=== PATIENT | female | born 1955 ===

== ENCOUNTER 2020-06-27 07:29 | Outpatient (REF) | payer OTHER, SELFPAY ==
[2020-06-27 11:40] LABS: Estimated Average Glucose 117 mg/dL; Hemoglobin A1c % 5.7 %
[2020-06-27 11:49] LABS: Hemoglobin 13.8 g/dl (12.0-16.0); Mean Corpuscular HGB Conc 32.9 g/dl (31.0-35.0); Mean Corpuscular Hemoglobin 29.4 pg (27.0-33.0); Mean Corpuscular Volume 89.4 fL (80-98); Mean Platelet Volume 11.5 fL (9.4-12.3); Platelet Count 195 X10*3/uL (160-400); Red Cell Distribution Width 12.2 % (11.0-16.0); White Blood Count 5.7 X10*3/uL (4.8-10.8)
[2020-06-27 12:01] LABS: Glucose Urine UA NEG (NEG); Leukocyte Esterase Urine 1+ (NEG); Nitrite Urine NEG (NEG); Urine Blood TRACE (NEG); Urine Ketones NEG (NEG); Urine Protein NEG (NEG-TRACE)
[2020-06-27 12:03] LABS: Appearance Urine HAZY; Color Urine YELLOW
[2020-06-27 12:04] LABS: Alanine Aminotransferase 37 U/L (0-31); Albumin Level 4.4 g/dL (3.5-5.0); Alkaline Phosphatase 113 U/L (39-117); Anion Gap 14 (12-20); Aspartate Amino Transferase 23 U/L (5-31); Bilirubin Total 0.9 mg/dL (0.0-1.0); Blood Urea Nitrogen 13 mg/dL (9-16); Calcium 8.5 mg/dL (8.4-10.2); Carbon Dioxide 27 mmol/L (22-29); Chloride 104 mmol/L (96-108); Cholesterol 165 mg/dL; Estimated Glomerular Filt Rate > 60; Glucose Fasting 99 mg/dL (60-99); HDL Cholesterol 51 mg/dL; LDL Cholesterol Calculated 91 mg/dl; Potassium 4.7 mmol/l (3.3-5.1); Sodium 140 mmol/L (135-145); Triglycerides 118 mg/dL
[2020-06-27 12:18] LABS: RBC Urine 0-2 /HPF (0)
[2020-06-27 12:19] LABS: Bacteria Urine TRACE /LPF; Mucus Urine 1+ /LPF; Squamous Epithelial Cell Urine 2+ /LPF
== END 2020-06-27 07:30 | disposition home or self-care (01) ==
LOC: HO.HMGCLDS 07:29
PROVIDERS: PCP Internal Medicine; Visit Provider Internal Medicine
DX: E78.5 Hyperlipidemia, unspecified (principal); I10 Essential (primary) hypertension; J45.909 Unspecified asthma, uncomplicated
CPT/HCPCS: 36415; 80053; 80061; 81001; 83036; 85027

== ENCOUNTER 2020-10-20 07:02 | Outpatient (REF) | payer OTHER, SELFPAY ==
[2020-10-20 11:32] LABS: Glucose Urine UA NEG (NEG); Leukocyte Esterase Urine 2+ (NEG); Nitrite Urine NEG (NEG); PH 6.5 (5.0-8.0); Specific Gravity - Urine 1.025 (1.005-1.025); Urine Blood TRACE (NEG); Urine Ketones NEG (NEG); Urine Protein NEG (NEG-TRACE)
[2020-10-20 11:41] LABS: Hematocrit 41.3 % (37-47); Hemoglobin 13.4 g/dl (12.0-16.0); Mean Corpuscular HGB Conc 32.4 g/dl (31.0-35.0); Mean Corpuscular Hemoglobin 29.5 pg (27.0-33.0); Mean Platelet Volume 11.6 fL (9.4-12.3); Platelet Count 190 X10*3/uL (160-400); Red Blood Count 4.54 X10*6/uL (4.20-5.50); Red Cell Distribution Width 12.5 % (11.0-16.0); White Blood Count 4.9 X10*3/uL (4.8-10.8)
[2020-10-20 11:52] LABS: Appearance Urine HAZY; Color Urine YELLOW
[2020-10-20 12:07] LABS: Alanine Aminotransferase 40 U/L (0-31); Albumin Level 4.2 g/dL (3.5-5.0); Alkaline Phosphatase 102 U/L (39-117); Anion Gap 11 (12-20); Aspartate Amino Transferase 25 U/L (5-31); Blood Urea Nitrogen 15 mg/dL (9-16); Calcium 8.8 mg/dL (8.4-10.2); Carbon Dioxide 29 mmol/L (22-29); Chloride 104 mmol/L (96-108); Cholesterol 202 mg/dL; Estimated Glomerular Filt Rate > 60; Glucose Fasting 101 mg/dL (60-99); HDL Cholesterol 53 mg/dL; LDL Cholesterol Calculated 123 mg/dl; Potassium 4.3 mmol/L (3.3-5.1); Sodium 140 mmol/L (135-145); Triglycerides 132 mg/dL
[2020-10-20 12:20] LABS: Mucus Urine 1+ /LPF; RBC Urine 0-2 /HPF (0); Renal Epithelial Cells Urine 1+ /LPF; Squamous Epithelial Cell Urine 1+ /LPF; WBC Urine 30-49 /HPF (0-4)
[2020-10-20 12:32] LABS: TSH reflex Free T4 1.48 uIU/mL (0.32-4.0)
== END 2020-10-20 07:03 | disposition home or self-care (01) ==
LOC: HO.HMGCLDS 07:02
PROVIDERS: PCP Internal Medicine; Visit Provider Internal Medicine
DX: I10 Essential (primary) hypertension (principal); E78.5 Hyperlipidemia, unspecified; D23.5 Other benign neoplasm of skin of trunk; E04.9 Nontoxic goiter, unspecified; J45.909 Unspecified asthma, uncomplicated
CPT/HCPCS: 36415; 80053; 80061; 81001; 84443; 85027

== ENCOUNTER 2020-11-19 08:12 | Outpatient (REF) | payer OTHER, SELFPAY ==
--- NOTE | ~2020-11-19 | US_ITS ---
EXAMINATION: US THYROID CLINICAL INFORMATION: Hyperlipidemia, unspecified. COMPARISON: Thyroid ultrasound 01/30/2018. TECHNIQUE: Linear transducer grayscale and color Doppler examination with attention to the region of the thyroid. FINDINGS: SIZE: Measurements of the thyroid lobes and nodules are given in sagittal, anteroposterior and transverse dimensions respectively. Right Thyroid Lobe: 6.3 x 1.9 x 1.7 cm, volume 10.3 mL. Previously 4.3 x 1.8 x 2.0 cm, volume 7.8 mL. Parenchyma: The gland echotexture is heterogeneous. Thyroid vascularity is normal. Left Thyroid Lobe: 4.5 x 1.5 x 1.4 cm, volume 5.0 mL. Previously 3.9 x 1.4 x 1.4 cm, volume 4.1 mL. Parenchyma: The gland echotexture is homogeneous. Thyroid vascularity is normal. Isthmus: 0.3 cm in maximum AP dimension. Previously 0.1 cm. Estimated total number of nodules greater than or equal to 1 cm: 0. 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 Location: Right mid pole. Size: 0.5 x 0.4 x 0.3 cm, volume 0.09 mL. Previously: 0.5 x 0.3 x 0.3 cm, volume 0.02 mL. Nodule characteristics: Composition: Cystic(0). ACR TI-RADS total points: 0 ACR TI-RADS category: 1 Significant change in size (>/= 20% in 2 dimensions and minimal increase of 2 mm or 50% or greater increase in volume): No. Change in features: No. Change in ACR TI-RADS risk category: Non-applicable. 2. Location: Right mid pole. Size: 0.9 x 0.7 x 0.9 cm, volume 0.3 mL. Previously: 1.1 x 0.9 x 0.9 cm, volume 0.5 mL. Nodule characteristics: Composition: Mixed cystic and solid (1). Echogenicity: Very hypoechoic (3). Shape: Not taller than wide (0). Margins: Irregular (2). Echogenic Foci: Punctate echogenic foci (3). ACR TI-RADS total points: 9 ACR TI-RADS category: 5 Significant change in size (>/= 20% in 2 dimensions and minimal increase of 2 mm or 50% or greater increase in volume): Decreased. Change in features: No Change in ACR TI-RADS risk category: Non-applicable. 3. Location: Right mid pole. Size: 0.3 x 0.3 x 0.2 cm, volume 0.01 mL. Previously: 0.3 x 0.2 x 0.3 cm, volume 0.01 mL. Nodule characteristics: Composition: Cystic(0). ACR TI-RADS total points: 0 ACR TI-RADS category: 1 Significant change in size (>/= 20% in 2 dimensions and minimal increase of 2 mm or 50% or greater increase in volume): No Change in features: No. Change in ACR TI-RADS risk category: Non-applicable. 4. Location: Right lower pole. Size: 0.5 x 0.3 x 0.4 cm, volume 0.03 mL. Previously: Not seen. Nodule characteristics: Composition: Cystic(0). ACR TI-RADS total points: 0 ACR TI-RADS category: 1 Significant change in size (>/= 20% in 2 dimensions and minimal increase of 2 mm or 50% or greater increase in volume): Non-applicable. Change in features: Non applicable. Change in ACR TI-RADS risk category: Non-applicable. 5. Location: Left lower pole. Size: 0.4 x 0.4 x 0.4 cm, volume 0.03 mL. Previously: Not seen. Nodule characteristics: Composition: Mixed cystic and solid (1). Echogenicity: Cannot be determined (1). Shape: Not taller than wide (0). Margins: Smooth (0). Echogenic Foci: None (0). ACR TI-RADS total points: 2 ACR TI-RADS category: 2 Significant change in size (>/= 20% in 2 dimensions and minimal increase of 2 mm or 50% or greater increase in volume): New. Change in features: Non-applicable. Change in ACR TI-RADS risk category: Non-applicable. NODES: No lymphadenopathy is seen in the tissue surrounding the thyroid gland. US/US thyroid IMPRESSION: Multinodular goiter with recommendations as follows: Nodule 1: No follow up. Nodule 2: Follow up in 1 year. Nodule 3: No follow up. Nodule 4: No follow up. Nodule 5: No follow up. ACR TI-RADS RECOMMENDATION REFERENCE: Ultrasound-guided fine-needle aspiration, follow up ultrasound, no further follow up. * TR1 (0 point) and TR 2 (2 points): No FNA or follow up. * TR3 (3 points): FNA if more than or equal to 2.5 cm in maximum dimension, follow up ultrasound in 1, 3 and 5 years if 1.5 to 2.4 cm in maximum dimension. * TR4 (4-6 points): FNA if more than or equal to 1.5 cm in maximum dimension, follow up ultrasound in 1, 2, 3 and 5 years if 1 to 1.4 cm in maximum dimension. * TR5 (more than or equal to 7 points): FNA if more than or equal to 1 cm in maximum dimension, followup ultrasound every year for 5 years if 0.5 to 0.9 cm in maximum dimension. * TR3, TR4 or TR5 nodules that are below the size threshold for follow up receive no follow up.
== END 2020-11-19 08:13 | disposition home or self-care (01) ==
LOC: HO.HMGCX 08:12
PROVIDERS: PCP Internal Medicine; Visit Provider Internal Medicine
DX: E78.5 Hyperlipidemia, unspecified (principal); I10 Essential (primary) hypertension; D23.5 Other benign neoplasm of skin of trunk; E04.9 Nontoxic goiter, unspecified
CPT/HCPCS: 76536

== ENCOUNTER 2021-01-22 22:35 | Emergency (ER) | payer OTHER, SELFPAY ==
--- NOTE | ~2021-01-22 | XR_ITS ---
EXAMINATION: XR CHEST CLINICAL INFORMATION: Shortness of breath COMPARISON: Chest x-ray January 26, 2019 TECHNIQUE: Frontal portable view of the chest was obtained. 11:06 PM FINDINGS: Lungs are clear. No pulmonary vascular congestion. There is no pleural effusion. The heart size is normal. The cardiac and mediastinal contours are normal. There are multilevel degenerative changes of dorsal spine. XR/XR chest 1V IMPRESSION: Unremarkable examination.
[2021-01-22 22:44] VITALS: BP 148/78; PULSE 74; RESP 16; TEMP 36.9; O2SAT 96; BMI 36.0
== END 2021-01-23 01:57 | disposition left against medical advice (07) ==
PROVIDERS: Emergency Provider Emergency Medicine; PCP Internal Medicine
DX: R06.02 Shortness of breath (principal); R05 Cough; I10 Essential (primary) hypertension; J45.909 Unspecified asthma, uncomplicated
CPT/HCPCS: 71045; 99282; 99283

== ENCOUNTER 2021-05-04 08:10 | Outpatient (REF) | payer OTHER, SELFPAY ==
--- NOTE | ~2021-05-04 | XR_ITS ---
EXAMINATION: XR SHOULDER, RIGHT CLINICAL INFORMATION: Pain COMPARISON: None TECHNIQUE: AP external rotation, Grashey, scapular Y, and axillary views of the right shoulder. FINDINGS: Bone alignment is normal. No fracture or dislocation is seen. The glenohumeral joint is normal. 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 Soft tissues are unremarkable. XR/XR shoulder RT min 2V IMPRESSION: Degenerative changes at the acromioclavicular joint.
[2021-05-04 12:10] LABS: Appearance Urine CLEAR; Color Urine YELLOW; Glucose Urine UA NEG (NEG); Leukocyte Esterase Urine NEG (NEG); Nitrite Urine NEG (NEG); Specific Gravity - Urine 1.025 (1.005-1.025); Urine Blood NEG (NEG); Urine Ketones NEG (NEG); Urine Protein NEG (NEG-TRACE)
[2021-05-04 12:17] LABS: Hematocrit 41.1 % (37.0-47.0); Hemoglobin 13.9 g/dl (12.0-16.0); Mean Corpuscular HGB Conc 33.8 g/dl (31.0-35.0); Mean Corpuscular Hemoglobin 30.2 pg (27.0-33.0); Mean Corpuscular Volume 89.2 fL (80.0-98.0); Mean Platelet Volume 11.7 fL (9.4-12.3); Platelet Count 187 X10*3/uL (160-400); Red Blood Count 4.61 X10*6/uL (4.20-5.50); Red Cell Distribution Width 12.4 % (11.0-16.0); White Blood Count 5.3 X10*3/uL (4.8-10.8)
[2021-05-04 12:23] LABS: TSH reflex Free T4 1.46 uIU/mL (0.32-4.0)
[2021-05-04 12:25] LABS: Alanine Aminotransferase 45 U/L (0-31); Albumin Level 4.2 g/dL (3.5-5.0); Alkaline Phosphatase 96 U/L (39-117); Anion Gap 12 (12-20); Aspartate Amino Transferase 31 U/L (5-31); Bilirubin Total 1.1 mg/dL (0.0-1.0); Blood Urea Nitrogen 13 mg/dL (9-16); Calcium 9.1 mg/dL (8.4-10.2); Carbon Dioxide 26 mmol/L (22-29); Chloride 105 mmol/L (96-108); Cholesterol 164 mg/dL; Estimated Glomerular Filt Rate > 60; Glucose Fasting 96 mg/dL (60-99); HDL Cholesterol 51 mg/dL; LDL Cholesterol Calculated 91 mg/dl; Potassium 4.8 mmol/L (3.3-5.1); Sodium 138 mmol/L (135-145); Triglycerides 112 mg/dL
[2021-05-04 12:31] LABS: WBC Urine 0-2 /HPF (0-4)
[2021-05-04 12:32] LABS: Amorphous Sediment Urine TRACE /LPF; RBC Urine 0 /HPF (0); Squamous Epithelial Cell Urine TRACE /LPF
== END 2021-05-04 08:11 | disposition home or self-care (01) ==
LOC: HO.HMGCLDS 08:10
PROVIDERS: PCP Internal Medicine; Visit Provider Internal Medicine
DX: Z00.00 Encounter for general adult medical examination without abnormal findings (principal); E78.5 Hyperlipidemia, unspecified; I10 Essential (primary) hypertension; J45.909 Unspecified asthma, uncomplicated; M25.511 Pain in right shoulder
CPT/HCPCS: 36415; 73030; 80053; 80061; 81001; 84443; 85027

== ENCOUNTER 2021-06-04 11:00 | Outpatient (RCR) | payer OTHER, SELFPAY ==
--- NOTE | 2021-05-14 19:10 | MHC.PT.EP ---
[facility] [place] Office [place] Office [place] Office [address] Adelita Suggs [address] [phone] F: [phone] F: [phone] F: [phone] F: [phone] Physical Therapy Plan of Care Date of Evaluation: Date of Surgery: Diagnosis: Pain in R shoulder. Assessment: Pt is a 65 y/o female referred to PT for eval and treat of R shoulder pain resulting in decreased tolerance for reaching high shelves, washing her hair and neck, dressing pullovers, as well as lifting objects of weight and performing heavy HH chores secondary to decreased R shoulder ROM and strength, TTP of posterio-lateral R shoulder, decreased posture, and pain. Pt is deemed an appropriate candidate to receive skilled PT in order to address her physical limitations to improve her functional ability. Frequency and Duration: The patient will be seen 2 x / kw x 5 wk s. Short Term Goals: Initiate HEP with evidence of compliance. Improve baseline pain with activity to < 5/10, initial: 01/13. Usp Goals: I with HEP. Pt will be able to place objects on high shelf with managed Sx; intitial: 01/13. Pt will be able to reach her hair and back of neck for hygiene and dressing with managed Sx; initial: 02/13. Improve R shoulder abd MMT to > 4/5; initial 4-/5 and painful. Treatment Plan: Modalities to reduce pain, spasms and effusion. Manual therapy to restore motion and function. Therapeutic exercise to improve strength and flexibility. Neuromuscular re-education for posture and balance. Therapeutic activities to return to functional activities of daily living. Electronically signed by: Odin Mancilla PT. Please sign and return to therapist. Thank you for your referral.
--- NOTE | 2021-09-18 13:20 | MHC.PT.DC ---
[facility] [place] Office [place] Office [place] Office [address] Adelita Suggs [address] [phone] F: [phone] F: [phone] F: [phone] F: [phone] Physical Therapy Discharge Report Diagnosis: Pain in R shoulder. Date of Surgery: Date of Evaluation: 05/14/21 Date of Discharge: 09/18/21 Treatments to Date: 2 Cancellations to Date: 4 No Shows to Date: Discharge Status: Visit Non-compliance Discharge Summary: DC per attendance policy. . Electronically signed by: Odin Mancilla PT. Please sign and return to therapist. Thank you for your referral.
== END 2021-09-18 13:20 | disposition home or self-care (01) ==
LOC: HO.PTCHIC 11:00
PROVIDERS: PCP Internal Medicine; Visit Provider Internal Medicine
DX: M25.511 Pain in right shoulder (principal)
CPT/HCPCS: 97110; 97140; 97161

== ENCOUNTER 2021-12-23 07:18 | Outpatient (REF) | payer OTHER, SELFPAY ==
[2021-12-23 11:22] LABS: Appearance Urine CLEAR; Color Urine YELLOW; Glucose Urine UA NEG (NEG); Leukocyte Esterase Urine TRACE (NEG); Nitrite Urine NEG (NEG); Specific Gravity - Urine 1.015 (1.005-1.025); Urine Blood NEG (NEG); Urine Ketones NEG (NEG); Urine Protein NEG (NEG-TRACE)
[2021-12-23 11:28] LABS: MANUAL DIFF FLAG NO
[2021-12-23 11:34] LABS: Basophils Percent Auto 0.6 % (0-2); Eosinophils Absolute Auto 0.1 X10*3/uL (0.0-0.4); Eosinophils Percent Auto 1.4 % (0-4); Hematocrit 39.7 % (37.0-47.0); Hemoglobin 13.1 g/dl (12.0-16.0); Imm Gran Abs Auto 0.02 X10*3/uL (0.00-0.03); Imm Gran Pct Auto 0.4 % (0.0-0.4); Lymphocytes Absolute Auto 1.9 X10*3/uL (1.2-4.9); Lymphocytes Percent Auto 39.5 % (20-40); Mean Corpuscular Hemoglobin 29.4 pg (27.0-33.0); Mean Corpuscular Volume 89.2 fL (80.0-98.0); Mean Platelet Volume 11.2 fL (9.4-12.3); Monocytes Absolute Auto 0.6 X10*3/uL (0.1-1.2); Monocytes Percent Auto 11.6 % (2-11); Neutrophils Absolute Auto 2.3 x10*3/uL (2.0-8.3); Neutrophils Percent Auto 46.5 % (45-73); Platelet Count 173 X10*3/uL (160-400); Red Blood Count 4.45 X10*6/uL (4.20-5.50); Red Cell Distribution Width 12.1 % (11.0-16.0); White Blood Count 4.9 X10*3/uL (4.8-10.8)
[2021-12-23 11:53] LABS: Alanine Aminotransferase 40 U/L (0-31); Albumin Level 4.2 g/dL (3.5-5.0); Alkaline Phosphatase 112 U/L (39-117); Anion Gap 11 (12-20); Aspartate Amino Transferase 28 U/L (5-31); Bilirubin Total 1.1 mg/dL (0.0-1.0); Blood Urea Nitrogen 13 mg/dL (9-16); Calcium 8.8 mg/dL (8.4-10.2); Carbon Dioxide 27 mmol/L (22-29); Chloride 105 mmol/L (96-108); Cholesterol 206 mg/dL; Estimated Glomerular Filt Rate > 60; Glucose Fasting 111 mg/dL (60-99); HDL Cholesterol 52 mg/dL; LDL Cholesterol Calculated 126 mg/dl; Potassium 4.3 mmol/L (3.3-5.1); Sodium 139 mmol/L (135-145); Total Protein 7.1 g/dL (6.5-8.0); Triglycerides 141 mg/dL
[2021-12-23 12:11] LABS: Bacteria Urine TRACE /LPF
[2021-12-23 12:12] LABS: Amorphous Sediment Urine 2+ /LPF; RBC Urine 0 /HPF (0); Renal Epithelial Cells Urine TRACE /LPF; Squamous Epithelial Cell Urine TRACE /LPF
[2021-12-23 12:13] LABS: TSH reflex Free T4 1.91 uIU/mL (0.32-4.0)
== END 2021-12-23 07:19 | disposition home or self-care (01) ==
LOC: HO.HMGCLDS 07:18
PROVIDERS: Visit Provider Internal Medicine
DX: E78.5 Hyperlipidemia, unspecified (principal); I10 Essential (primary) hypertension; J45.909 Unspecified asthma, uncomplicated
CPT/HCPCS: 36415; 80053; 80061; 81001; 84443; 85025

== ENCOUNTER 2022-02-05 09:13 | Emergency (ER) | payer OTHER, SELFPAY ==
--- NOTE | ~2022-02-05 | XR_ITS ---
EXAMINATION: XR CHEST CLINICAL INFORMATION: Chest pain COMPARISON: 01/22/2021 TECHNIQUE: Frontal view of the chest was obtained. FINDINGS: Lungs clear. Heart and pulmonary vessels are normal. There is degenerative change in both shoulder joints. XR/XR chest 1V IMPRESSION: No active disease.
[2022-02-05 09:26] VITALS: BP 165/73; PULSE 68; RESP 12; O2SAT 98
[2022-02-05 09:33] VITALS: BP 146/86; BP 165/73; PULSE 68; PULSE 72; RESP 20; TEMP 36.5; O2SAT 98; O2SAT 99; BMI 36.2
--- NOTE | 2022-02-05 09:34 | ECG_ITS ---
Test Reason : cp Blood Pressure : / mmHG Vent. Rate : 060 BPM Atrial Rate : 060 BPM P-R Int : 132 ms QRS Dur : 090 ms QT Int : 450 ms P-R-T Axes : 015 004 009 degrees QTc Int : 450 ms Normal sinus rhythm Minimal voltage criteria for LVH, may be normal variant ( R in aVL ) Borderline ECG No previous ECGs available Referred By: Arlet Dent Electronically Signed By:JEISON CAVANAUGH
--- NOTE | 2022-02-05 09:35 | ED_ITS ---
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 No other associated symptoms. No improvement with nitro at home or with EMS though the pain is gone now. She was also given ASA. She is very anxious at this time MD complaint: chest pain Pertinent past history: other (angina per PCP notes) Onset (ago): hour(s) (2am today) Timing of current episode: now resolved Prior episodes: Yes Onset: during rest Pain location: left chest Pain radiation: left arm Severity: moderate Quality: burning Relieving factors: nothing Exacerbating factors: nothing Treatment prior to arrival: aspirin and nitroglycerin (patient x 3 and EMS) Related Data Previous Rx's Medication Instructions Recorded valacyclovir 1 gram tablet 1,000 mg PO BID #20 tabs 10/31/20 (Valtrex) clotrimazole 1 % topical cream 1 appl topical BID 4 weeks #45 04/24/21 grams fluticasone propionate 50 1 inh inhalation BID #180 ea 05/20/21 mcg/actuation blister powder for inhalation (Flovent Diskus) nitroglycerin 0.3 mg sublingual 0.3 mg sublingual DIRECTED #100 06/11/21 tablet tabs ezetimibe 10 mg tablet 10 mg PO DAILY #90 tabs 06/19/21 simvastatin 40 mg tablet 40 mg PO BEDTIME #90 tabs 06/19/21 lisinopril 5 mg tablet 5 mg PO DAILY #90 tabs 08/17/21 albuterol sulfate 90 mcg/actuation 2 puff inhalation Q6H PRN 01/19/22 aerosol inhaler shortness of breath or wheezing #8.5 grams ProAir HFA 90 mcg/actuation 2 puff inhalation QID PRN 01/20/22 aerosol inhaler (albuterol sulfate) shortness of breath or wheezing 30 days #8.5 grams Allergies Allergy/AdvReac Type Severity Reaction Status Date / Time atorvastatin [Lipitor] Allergy Unknown rash Verified 02/05/22 08:15 rosuvastatin [Crestor] AdvReac Unknown myalgia Verified 02/05/22 08:15 Review of Systems Review of Systems: Constitutional : No Weight loss, No Fever, No Chills ENT/Mouth : No sore throat, No Rhinorrhea Eyes: No Eye Pain, No Swelling Cardiovascular : pos Chest Pain, no SOB, no Dyspnea on Exertion, No Orthopnea, No Edema, No Palpitations Respiratory : No Cough, No Sputum Gastrointestinal : no Nausea, No Vomiting, No Diarrhea, No abdominal Pain, No Hematochezia, No Melena Genitourinary : No Dysuria, No Urinary Frequency Musculoskeletal : No joint pain, No Myalgias, No Joint Swelling Skin : No Skin Lesions, No rash Neuro : No Weakness, No Numbness, No Dizziness, No Headache Psych : No Anxiety/Panic, No Depression Heme/Lymph: No Bruising, No Lymphadenopathy Endocrine : No Polyuria, No Polydipsia All other systems reviewed and are negative [facility] Past Medical History Attestation statement: The following information was validated with the patient. Medical History Annual physical exam Anxiety Asthma Enlarged thyroid HTN (hypertension) Hyperlipidemia Multiple thyroid nodules Nicolau-Balus syndrome Overweight Shoulder pain, right Stable angina Surgical History No pertinent past surgical history Family History Family History Father Unknown family medical history Social History Social History Housing: House Alcohol intake: never Patient Tobacco Use Status: Never used Tobacco e-Cigarette/Vaping Use: Never Used Use of substances other than those prescribed or required for medical reasons: No Advance Directives: Yes Advance Directives Information Provided: Yes Advance Directives on File: No Current occupational status: retired Cognitive needs: No Hearing needs: No Vision needs: No Physical Exam Vital Signs: Vital Signs: Last Vital Signs Temp 97.7 F 02/05/22 09:33 Pulse 58 02/05/22 12:22 Resp 16 02/05/22 12:22 BP 134/48 L 02/05/22 12:22 Pulse Ox 98 02/05/22 12:22 O2 Del Method 02/05/22 12:22 BMI result Body Mass Index 36.2 Appearance: Alert. Oriented X3. No acute distress. Very anxious Eyes: Pupils equal, round and reactive to light. ENT: Pharynx normal. Neck: Normal inspection. Neck supple. CVS: Normal heart rate and rhythm. Pulses normal. Respiratory: No respiratory distress. Breath sounds normal. Abdomen: Soft and nontender. Skin: Skin warm and dry. Normal skin color. Normal skin turgor. Extremities: No lower extremity edema. No calf ttp LUE 5/5 strength SILT in tact, 2+ radial pulse Neuro: Oriented X 3. No motor deficit. No sensory deficit. Course Course Course Narrative: two flat troponins , no sig ischemia on EKG, atypical pain stable for DC MDM - Chest Pain MDM Narrative Medical decision making narrative: 66 yo female with hx of anxiety, HTN, HLD, asthma, angina per internal medicine notes and given PRN nitro at home but I do not see cardiac workup in our system - presents with atypical chest pain since 2pm no response to nitro x multiple doses though the burning pain is gone now. I do not see a formal dx of CAD in our system or a workup. She is very anxious at this time. She has no hypoxia, tachycardia, signs of DVT to suggest PE. She has good distal pulses and her LUE has bounding pulses with 2+ radial pulse intact in left arm doubt dissection - will obtain troponin x 2, CXR, labs, PO ativan for anxiety. Dispo per results and findings. Lab Data Result diagrams: 02/05/22 10:01 02/05/22 10:01 Labs: Lab Results 02/05/22 02/05/22 02/05/22 Range/Units 10:01 10:01 10:01 WBC 5.9 (4.8-10.8) X10*3/uL RBC 4.40 (4.20-5.50) X10*6/uL Hgb 13.5 (12.0-16.0) g/dl Hct 38.7 (37.0-47.0) % MCV 88.0 (80.0-98.0) fL MCH 30.7 (27.0-33.0) pg MCHC 34.9 (31.0-35.0) g/dl RDW 12.1 (11.0-16.0) % Plt Count 183 (160-400) X10*3/uL MPV 11.1 (9.4-12.3) fL Immature Gran % (Auto) 0.3 (0.0-0.4) % Neut % (Auto) 50.2 (45-73) % Lymph % (Auto) 37.9 (20-40) % [place] % (Auto) 10.1 (2-11) % Eos % (Auto) 1.0 (0-4) % Baso % (Auto) 0.5 (0-2) % Lymph # (Auto) 2.2 (1.2-4.9) X10*3/uL [place] # (Auto) 0.6 (0.1-1.2) X10*3/uL Eos # (Auto) 0.1 (0.0-0.4) X10*3/uL Baso # (Auto) 0.0 (0.0-0.2) X10*3/uL Abs Immat Gran (auto) 0.02 (0.00-0.03) X10*3/uL Absolute Neuts (auto) 2.9 (2.0-8.3) x10*3/uL Absolute Nucleated RBC 0.000 (0.0-0.012) X10*3/uL Nucleated RBC % (auto) 0.0 (0.0-0.2) /100WBC PT 10.6 (10.0-13.1) SEC INR 0.9 (0.9-1.1) Sodium 139 (135-145) mmol/L Potassium 3.7 (3.3-5.1) mmol/L Chloride 103 (96-108) mmol/L Carbon Dioxide 26 (22-29) mmol/L Anion Gap 14 (12-20) BUN 14 (9-16) mg/dL Creatinine 0.66 (0.5-1.4) mg/dL Estim Creat Clear Calc 98.3 Estimated GFR > 60 Random Glucose 98 (60-115) mg/dL Calcium 8.6 (8.4-10.2) mg/dL Magnesium 2.0 (1.6-2.6) mg/dL Total Bilirubin 0.9 (0.0-1.0) mg/dL Direct Bilirubin 0.3 (0.0-0.5) mg/dL AST 24 (5-31) U/L ALT 35 H (0-31) U/L Alkaline Phosphatase 106 (39-117) U/L Troponin I High Sens (<3.5-17.0) ng/L Total Protein 7.0 (6.5-8.0) g/dL Albumin 4.1 (3.5-5.0) g/dL Lipase 8 (8-78) U/L COVID-19 (KATERINA) (Negative) COVID-19 Clin Com 02/05/22 02/05/22 02/05/22 Range/Units 10:01 10:01 12:00 WBC (4.8-10.8) X10*3/uL RBC (4.20-5.50) X10*6/uL Hgb (12.0-16.0) g/dl Hct (37.0-47.0) % MCV (80.0-98.0) fL MCH (27.0-33.0) pg MCHC (31.0-35.0) g/dl RDW (11.0-16.0) % Plt Count (160-400) X10*3/uL MPV (9.4-12.3) fL Immature Gran % (Auto) (0.0-0.4) % Neut % (Auto) (45-73) % Lymph % (Auto) (20-40) % [place] % (Auto) (2-11) % Eos % (Auto) (0-4) % Baso % (Auto) (0-2) % Lymph # (Auto) (1.2-4.9) X10*3/uL [place] # (Auto) (0.1-1.2) X10*3/uL Eos # (Auto) (0.0-0.4) X10*3/uL Baso # (Auto) (0.0-0.2) X10*3/uL Abs Immat Gran (auto) (0.00-0.03) X10*3/uL Absolute Neuts (auto) (2.0-8.3) x10*3/uL Absolute Nucleated RBC (0.0-0.012) X10*3/uL Nucleated RBC % (auto) (0.0-0.2) /100WBC PT (10.0-13.1) SEC INR (0.9-1.1) Sodium (135-145) mmol/L Potassium (3.3-5.1) mmol/L Chloride (96-108) mmol/L Carbon Dioxide (22-29) mmol/L Anion Gap (12-20) BUN (9-16) mg/dL Creatinine (0.5-1.4) mg/dL Estim Creat Clear Calc Estimated GFR Random Glucose (60-115) mg/dL Calcium (8.4-10.2) mg/dL Magnesium (1.6-2.6) mg/dL Total Bilirubin (0.0-1.0) mg/dL Direct Bilirubin (0.0-0.5) mg/dL AST (5-31) U/L ALT (0-31) U/L Alkaline Phosphatase (39-117) U/L Troponin I High Sens < 3.5 < 3.5 (<3.5-17.0) ng/L Total Protein (6.5-8.0) g/dL Albumin (3.5-5.0) g/dL Lipase (8-78) U/L COVID-19 (KATERINA) Negative (Negative) COVID-19 Clin Com See Note ECG Data ECG #1: Attestation: I personally reviewed and interpreted this ECG as follows: ECG interpretation date: 02/05/22 ECG interpretation time: 09:47 Interpretation: Rate: 60 Rhythm: NSR [place]: left Normal P waves. Normal [place]. Normal QRS complex. ST T wave : no NOEMI, nonspecific changes in anterior and inf leads but no ischemic changes qTC: normal prior studies: no acute ischemia The study has been interpreted contemporaneously by me. . Scores Heart Score History: -0- slightly suspicious ECG: -1- non specific repolarization disturbance Age: -1- >45 - <65 Risk factory: -1- 1 or 2 risk factors Troponin: -0- < or = normal limit Score: 3 Risk: 1.7% Discharge Plan Discharge Clinical Impression: Atypical chest pain Patient Disposition: Home, Self-Care Instructions: Chest Pain (ED) Additional Instructions: return to ED for any worsening symptoms or concerns heart tests normal x 2 call your doctor for outpatient stress test on Tuesday Prescriptions: No Action valacyclovir [Valtrex] 1 gram tablet 1,000 mg PO BID Qty: 20 0RF Flovent Diskus 50 mcg/actuation blister with device 1 inh inhalation BID Qty: 180 3RF nitroglycerin 0.3 mg tablet, sublingual 0.3 mg sublingual DIRECTED Qty: 100 1RF simvastatin 40 mg tablet 40 mg PO BEDTIME Qty: 90 3RF ezetimibe 10 mg tablet 10 mg PO DAILY Qty: 90 3RF lisinopril 5 mg tablet 5 mg PO DAILY Qty: 90 3RF albuterol sulfate 90 mcg/actuation HFA aerosol inhaler 2 puff inhalation Q6H PRN (Reason: shortness of breath or wheezing) Qty: 8.5 5RF albuterol sulfate [ProAir HFA] 90 mcg/actuation HFA aerosol inhaler 2 puff inhalation QID PRN (Reason: shortness of breath or wheezing) 30 Days Qty: 8.5 3RF clotrimazole 1 % cream 1 appl topical BID 28 Days Qty: 45 3RF Referrals: Fiona Jiang MD [Primary Care Provider] - 02/09/22
[2022-02-05] MEDS: LORazepam 1 MG TABLET PO (09:41)
[2022-02-05 10:20] LABS: MANUAL DIFF FLAG NO
[2022-02-05 10:24] LABS: Basophils Percent Auto 0.5 % (0-2); Eosinophils Absolute Auto 0.1 X10*3/uL (0.0-0.4); Hematocrit 38.7 % (37.0-47.0); Hemoglobin 13.5 g/dl (12.0-16.0); Imm Gran Abs Auto 0.02 X10*3/uL (0.00-0.03); Imm Gran Pct Auto 0.3 % (0.0-0.4); Lymphocytes Absolute Auto 2.2 X10*3/uL (1.2-4.9); Lymphocytes Percent Auto 37.9 % (20-40); Mean Corpuscular HGB Conc 34.9 g/dl (31.0-35.0); Mean Corpuscular Hemoglobin 30.7 pg (27.0-33.0); Mean Platelet Volume 11.1 fL (9.4-12.3); Monocytes Absolute Auto 0.6 X10*3/uL (0.1-1.2); Monocytes Percent Auto 10.1 % (2-11); Neutrophils Absolute Auto 2.9 x10*3/uL (2.0-8.3); Neutrophils Percent Auto 50.2 % (45-73); Platelet Count 183 X10*3/uL (160-400); Red Cell Distribution Width 12.1 % (11.0-16.0); White Blood Count 5.9 X10*3/uL (4.8-10.8)
[2022-02-05 10:27] LABS: INTERNATIONAL NORM RATIO 0.9 (0.9-1.1); Prothrombin Time 10.6 SEC (10.0-13.1)
[2022-02-05 10:42] LABS: COVID-19 Test Negative (Negative); IDNOW Serial# 16C4AD1C
[2022-02-05 10:43] LABS: Alanine Aminotransferase 35 U/L (0-31); Albumin Level 4.1 g/dL (3.5-5.0); Alkaline Phosphatase 106 U/L (39-117); Anion Gap 14 (12-20); Aspartate Amino Transferase 24 U/L (5-31); Bilirubin Direct 0.3 mg/dL (0.0-0.5); Bilirubin Total 0.9 mg/dL (0.0-1.0); Blood Urea Nitrogen 14 mg/dL (9-16); Calcium 8.6 mg/dL (8.4-10.2); Carbon Dioxide 26 mmol/L (22-29); Chloride 103 mmol/L (96-108); Creatinine Clr Calc Pharmacy 98.3; Estimated Glomerular Filt Rate > 60; Glucose Random 98 mg/dL (60-115); Lipase 8 U/L (8-78); Potassium 3.7 mmol/L (3.3-5.1); Sodium 139 mmol/L (135-145)
[2022-02-05 10:50] LABS: Troponin-I High Sensitivity < 3.5 ng/L (<3.5-17.0)
[2022-02-05 12:22] VITALS: BP 134/48; PULSE 58; RESP 16; O2SAT 98
[2022-02-05 12:29] LABS: Troponin-I High Sensitivity < 3.5 ng/L (<3.5-17.0)
== END 2022-02-05 12:47 | disposition home or self-care (01) ==
PROVIDERS: Emergency Provider Emergency Medicine; PCP Internal Medicine
DX: R07.89 Other chest pain (principal); I10 Essential (primary) hypertension; Z20.822 Contact with and (suspected) exposure to COVID-19; Z79.899 Other long term (current) drug therapy
CPT/HCPCS: 36415; 71045; 80048; 80076; 83690; 83735; 84484; 85025; 85610; 87635; 93005; 99283; 99284

== ENCOUNTER 2022-05-20 08:36 | Outpatient (REF) | payer OTHER, SELFPAY ==
[2022-05-20 11:39] LABS: Hematocrit 41.1 % (37.0-47.0); Hemoglobin 13.7 g/dl (12.0-16.0); Mean Corpuscular HGB Conc 33.3 g/dl (31.0-35.0); Mean Corpuscular Hemoglobin 29.5 pg (27.0-33.0); Mean Corpuscular Volume 88.6 fL (80.0-98.0); Platelet Count 189 X10*3/uL (160-400); Red Blood Count 4.64 X10*6/uL (4.20-5.50); Red Cell Distribution Width 12.3 % (11.0-16.0)
[2022-05-20 11:54] LABS: Estimated Average Glucose 108 mg/dL; Hemoglobin A1c % 5.4 %
[2022-05-20 13:30] LABS: Alanine Aminotransferase 34 U/L (0-31); Albumin Level 4.3 g/dL (3.5-5.0); Alkaline Phosphatase 106 U/L (39-117); Anion Gap 11 (12-20); Aspartate Amino Transferase 27 U/L (5-31); Bilirubin Total 1.1 mg/dL (0.0-1.0); Blood Urea Nitrogen 13 mg/dL (9-16); Calcium 9.3 mg/dL (8.4-10.2); Carbon Dioxide 28 mmol/L (22-29); Chloride 104 mmol/L (96-108); Cholesterol 200 mg/dL; Estimated Glomerular Filt Rate > 60; Glucose Fasting 101 mg/dL (60-99); HDL Cholesterol 54 mg/dL; LDL Cholesterol Calculated 123 mg/dl; Potassium 4.8 mmol/L (3.3-5.1); Sodium 138 mmol/L (135-145); Triglycerides 119 mg/dL
== END 2022-05-20 08:37 | disposition home or self-care (01) ==
LOC: HO.HMGCLDS 08:36
PROVIDERS: PCP Internal Medicine; Visit Provider Internal Medicine
DX: E78.5 Hyperlipidemia, unspecified (principal); R73.9 Hyperglycemia, unspecified; I10 Essential (primary) hypertension
CPT/HCPCS: 36415; 80053; 80061; 83036; 85027

== ENCOUNTER 2022-10-20 07:18 | Outpatient (REF) | payer OTHER, SELFPAY ==
[2022-10-20 12:15] LABS: Estimated Average Glucose 111 mg/dL; Hemoglobin A1c % 5.5 %
[2022-10-20 13:04] LABS: Alanine Aminotransferase 33 U/L (0-31); Albumin Level 4.1 g/dL (3.5-5.0); Alkaline Phosphatase 118 U/L (39-117); Anion Gap 11 (12-20); Aspartate Amino Transferase 24 U/L (5-31); Bilirubin Total 1.3 mg/dL (0.0-1.0); Blood Urea Nitrogen 13 mg/dL (9-16); Calcium 9.1 mg/dL (8.4-10.2); Carbon Dioxide 28 mmol/L (22-29); Chloride 104 mmol/L (96-108); Cholesterol 237 mg/dL; Estimated Glomerular Filt Rate > 60; Glucose Fasting 111 mg/dL (60-99); HDL Cholesterol 60 mg/dL; LDL Cholesterol Calculated 146 mg/dl; Potassium 4.4 mmol/L (3.3-5.1); Sodium 139 mmol/L (135-145); Total Protein 6.9 g/dL (6.5-8.0); Triglycerides 157 mg/dL
== END 2022-10-20 07:19 | disposition home or self-care (01) ==
LOC: HO.HMGCLDS 07:18
PROVIDERS: PCP Internal Medicine; Visit Provider Internal Medicine
DX: E78.5 Hyperlipidemia, unspecified (principal); R73.9 Hyperglycemia, unspecified; I10 Essential (primary) hypertension
CPT/HCPCS: 36415; 80053; 80061; 83036

== ENCOUNTER 2023-02-18 07:05 | Outpatient (REF) | payer MEDICARE, SELFPAY ==
[2023-02-18 11:14] LABS: MANUAL DIFF FLAG NO
[2023-02-18 11:37] LABS: Basophils Percent Auto 0.6 % (0-2); Eosinophils Absolute Auto 0.1 X10*3/uL (0.0-0.4); Hematocrit 40.1 % (37.0-47.0); Hemoglobin 13.5 g/dl (12.0-16.0); Imm Gran Abs Auto 0.03 X10*3/uL (0.00-0.03); Imm Gran Pct Auto 0.6 % (0.0-0.4); Lymphocytes Absolute Auto 1.8 X10*3/uL (1.2-4.9); Lymphocytes Percent Auto 36.7 % (20-40); Mean Corpuscular HGB Conc 33.7 g/dl (31.0-35.0); Mean Corpuscular Hemoglobin 29.9 pg (27.0-33.0); Mean Corpuscular Volume 88.7 fL (80.0-98.0); Mean Platelet Volume 11.5 fL (9.4-12.3); Monocytes Absolute Auto 0.5 X10*3/uL (0.1-1.2); Neutrophils Absolute Auto 2.4 x10*3/uL (2.0-8.3); Neutrophils Percent Auto 49.1 % (45-73); Platelet Count 172 X10*3/uL (160-400); Red Blood Count 4.52 X10*6/uL (4.20-5.50); Red Cell Distribution Width 12.3 % (11.0-16.0); White Blood Count 4.9 X10*3/uL (4.8-10.8)
[2023-02-18 12:03] LABS: Alanine Aminotransferase 26 U/L (0-31); Albumin Level 4.1 g/dL (3.5-5.0); Alkaline Phosphatase 102 U/L (39-117); Anion Gap 11 (12-20); Aspartate Amino Transferase 20 U/L (5-31); Bilirubin Total 1.1 mg/dL (0.0-1.0); Blood Urea Nitrogen 14 mg/dL (9-16); Carbon Dioxide 27 mmol/L (22-29); Chloride 106 mmol/L (96-108); Cholesterol 178 mg/dL (<200); Estimated Glomerular Filt Rate > 60; Glucose Fasting 103 mg/dL (60-99); HDL Cholesterol 54 mg/dL (>40); LDL Cholesterol Calculated 100 mg/dL (<100); Potassium 4.3 mmol/L (3.3-5.1); Sodium 140 mmol/L (135-145); Triglycerides 120 mg/dL (<150)
[2023-02-18 12:27] LABS: Estimated Average Glucose 117 mg/dL; Hemoglobin A1c % 5.7 % (<6.0)
== END 2023-02-18 07:06 | disposition home or self-care (01) ==
LOC: HO.HMGCLDS 07:05
PROVIDERS: PCP Internal Medicine; Visit Provider Internal Medicine
DX: R73.9 Hyperglycemia, unspecified (principal); E78.5 Hyperlipidemia, unspecified; I10 Essential (primary) hypertension
CPT/HCPCS: 36415; 80053; 80061; 83036; 85025

== ENCOUNTER 2023-02-22 08:34 | Outpatient (AMB) | payer MEDICARE, MEDICAID, SELFPAY ==
[2023-02-22 08:40] VITALS: BP 126/74; PULSE 70; O2SAT 96; BMI 36.4
--- NOTE | 2023-02-22 08:40 | A.OFFPC_ITS ---
Vital Signs 02/22/23 08:40 Height 5 ft 4 in Weight 212 lb BMI 36.4 BP 126/74 Blood Pressure Location Lt brachial Position Sitting Pulse 70 Pulse Source Pulse Oximeter Pulse Oximetry (%) 96 Oxygen Delivery Method Room Air Intake Visit Reasons: 4 month follow up Intake Note: Pt is here today for 4 months follow up visit. Allergies atorvastatin [Lipitor] Allergy (Unknown, Verified 02/22/23 08:40) rash rosuvastatin [Crestor] Adverse Reaction (Unknown, Verified 02/22/23 08:40) myalgia Medication List - Last Reconciled 02/22/23 by Fiona Jiang MD albuterol sulfate 90 mcg/actuation 2 puffs inhalation Q6H PRN clotrimazole 1% 1 appl topical BID 4 weeks ezetimibe 10 mg PO DAILY fluticasone propionate 50 mcg/actuation (Flovent Diskus) 1 inh inhalation BID lisinopril 5 mg PO DAILY nitroglycerin 1 spray translingual Q5M PRN simvastatin 40 mg PO BEDTIME valacyclovir (Valtrex) 1,000 mg PO BID Tobacco use date assessed: 10/22/22 Dental Screening Dental Screen Date: 02/22/23 Did you have a dental visit in the last 12 months?: Yes Did you have a dental problem in the last 6 months where you did not have access to dental care?: No Was dental information given to patient?: Patient has dentist HPI 4 month follow up HPI Details Pt presents for f/u HYPERTENSION AND HYPERLIPIDEMIA STABLE ON CURRENT MEDICATIONS. [facility] Medical History Annual physical exam Anxiety Asthma Enlarged thyroid HTN (hypertension) Hyperlipidemia Multiple thyroid nodules Nicolau-Balus syndrome Overweight Shoulder pain, right Stable angina Surgical History No pertinent past surgical history Family History Father Unknown family medical history Social History Housing: House Alcohol intake: never Patient Tobacco Use Status: Never used Tobacco e-Cigarette/Vaping Use: Never Used Current occupational status: retired Cognitive needs: No Hearing needs: No Vision needs: No Questionnaire Thrive Questionnaire Date Thrive assessed: 10/22/22 LATHA-7 AMB Questionnaire LATHA-7 Date LATHA - 7 assessed: 10/22/22 Source: Developed by Drs. Cristian Fabian, Lilly Whipple, Andrew Roque and colleagues, with an educational fabiola from [employer]. Review of Systems Const All systems reviewed & are unremarkable except as noted in HPI and below Reports no additional complaints Eyes Reports no additional complaints ENT Reports no additional complaints Card Reports no additional complaints Resp Reports no additional complaints GI Reports no additional complaints Reports no additional complaints Physical exam (Primary Care) Vital Signs: Last Vital Signs Pulse 70 02/22/23 08:40 BP 126/74 02/22/23 08:40 Pulse Ox 96 02/22/23 08:40 Oxygen Delivery Method Room Air 02/22/23 08:40 BMI result Body Mass Index 36.4 Tobacco/Smoking Status: Tobacco use Status Tobacco use date assessed 10/22/22 02/22/23 08:41 Patient Tobacco Use Status Never used Tobacco 02/22/23 08:41 e-Cigarette/Vaping Use Never Used 02/22/23 08:41 Thrive Assessment: Date of Thrive Assessment Date Thrive assessed 10/22/22 02/22/23 08:41 Const General: no acute distress HENMT Head: Yes normal to inspection Ears: hearing grossly normal bilaterally Neck Neck: Yes supple Resp Effort & Inspection: normal respiratory effort Auscultation: clear to auscultation bilaterally Cardio Rhythm: regular rhythm Heart sounds: S1 normal heart sound present and S2 normal heart sound present GI Inspection: Yes normal to inspection Palpation (GI): Soft to palpation Assessment and Plan Assessment & Plan (1) Hyperglycemia: Code(s): R73.9 - Hyperglycemia, unspecified Plan: A1c was 5.7, ADA diet increase exercise weight loss discussed with the patient. Follow-up in 6 months with a fasting labs before (2) Annual physical exam: Code(s): Z00.00 - Encounter for general adult medical examination without abnormal findings (3) Hyperlipidemia: Code(s): E78.5 - Hyperlipidemia, unspecified Plan: Continue statin (4) HTN (hypertension): Code(s): I10 - Essential (primary) hypertension Plan: Continue current medications follow-up in 6 months Orders: Orders Hemoglobin A1c 6 Months E78.5 - Hyperlipidemia, unspecified, I10 - Essential (primary) hypertension, R73.9 - Hyperglycemia, unspecified, Z00.00 - Encounter for general adult medical examination without abnormal findings Complete Blood Count Auto Diff 6 Months E78.5 - Hyperlipidemia, unspecified, I10 - Essential (primary) hypertension, R73.9 - Hyperglycemia, unspecified, Z00.00 - Encounter for general adult medical examination without abnormal findings Comprehensive [place]. Panel Fast 6 Months E78.5 - Hyperlipidemia, unspecified, I10 - Essential (primary) hypertension, R73.9 - Hyperglycemia, unspecified, Z00.00 - Encounter for general adult medical examination without abnormal findings Lipid Panel 6 Months E78.5 - Hyperlipidemia, unspecified, I10 - Essential (primary) hypertension, R73.9 - Hyperglycemia, unspecified, Z00.00 - Encounter for general adult medical examination without abnormal findings Coding Level of Care Code Est Pt Level 4 (94783) Diagnoses Hyperglycemia R73.9 Annual physical exam Z00.00 Hyperlipidemia E78.5 HTN (hypertension) I10
== END 2023-02-22 09:56 | disposition home or self-care (01) ==
PROVIDERS: PCP Internal Medicine; Visit Provider Internal Medicine
DX: R73.9 Hyperglycemia, unspecified (principal); Z00.00 Encounter for general adult medical examination without abnormal findings; E78.5 Hyperlipidemia, unspecified; I10 Essential (primary) hypertension
CPT/HCPCS: 99214

== ENCOUNTER 2023-04-28 05:15 | Emergency (ER) | payer MEDICARE, OTHER, SELFPAY ==
--- NOTE | 2023-04-28 | ECG_ITS ---
Test Reason : SOB/COUGH/CP Blood Pressure : / mmHG Vent. Rate : 070 BPM Atrial Rate : 070 BPM P-R Int : 154 ms QRS Dur : 088 ms QT Int : 430 ms P-R-T Axes : 013 005 013 degrees QTc Int : 464 ms Normal sinus rhythm Minimal voltage criteria for LVH, may be normal variant ( R in aVL ) Borderline ECG When compared with ECG of 05-FEB-2022 09:31, No significant change was found Referred By: Generic ED Physician Electronically Signed By:SCAR ARNETT MD
--- NOTE | ~2023-04-28 | CT_ITS ---
EXAMINATION: CT ANGIOGRAM OF THE CHEST WITH AND WITHOUT CONTRAST (CT PULMONARY ANGIOGRAM FOR PE) CLINICAL INFORMATION: Reason for Exam Anterior chest pain?PE COMPARISON: Chest x-ray from the same day TECHNIQUE: Prior to contrast administration, noncontrast localization images were obtained. Subsequently, multidetector volumetric imaging was performed from the thoracic inlet to below the diaphragms following the administration of 85 mL Omnipaque 350 intravenous contrast. No contrast reaction reported Sagittal, coronal, and MIP oblique sagittal reformatted images were obtained on the CT workstation, uploaded to PACS, and reviewed. This CT examination was performed using dose optimization techniques as appropriate, variously including the following: *Automated exposure control *Adjustment of mA and/or kV according to patient size (this includes techniques or standardized protocols for targeted exams where dose is matched to indication/reason for exam; i.e. extremities or head) *Use of iterative reconstruction technique Total exam dose-length product 366 mGy-cm FINDINGS: QUALITY OF STUDY/CONTRAST BOLUS: Satisfactory. PULMONARY ARTERIES: No filling defects are seen in the main, lobar, or segmental pulmonary arteries to suggest the presence of pulmonary emboli. THORACIC AORTA: No evidence of aortic aneurysm or dissection. LUNG: No regions of consolidation bilaterally. There is a 7 mm left lower lobe nodule on image 282/[id number]. There is a 3 mm left lower lobe nodule on image 353. Irregular shape nodule along the right minor fissure favors a lymph node. PLEURA: No pleural effusion or pneumothorax. MEDIASTINUM: The visualized thyroid gland is unremarkable. There are subcentimeter mediastinal lymph nodes within the range of normal variation. Cardiac size is within normal limits; no pericardial effusion. CORONARY ARTERY CALCIFICATION: Mild CHEST WALL/AXILLA: No axillary or internal mammary lymphadenopathy. OSSEOUS STRUCTURES: Multilevel degenerative changes in the spine. UPPER ABDOMEN: Unremarkable. No reflux of contrast into the hepatic veins to suggest elevated right heart pressures. CT/CT angio chest PE protocol IMPRESSION: 1. No pulmonary embolus identified. 2. Left lower lobe 7 mm and 3 mm nodules. According to the UPDATED 2017 Fleischner Society recommendations, the advised follow-up imaging for multiple solid nodules, the largest measuring 6 mm or greater, is: LOW RISK PATIENT: CT at 3-6 months, then consider CT at 18-24 months. HIGH RISK PATIENT: CT at 3-6 months, then at 18-24 months. VTE: negative.
--- NOTE | ~2023-04-28 | XR_ITS ---
EXAMINATION: XR CHEST CLINICAL INFORMATION: Chest pain, dyspnea COMPARISON: 02/05/2022 TECHNIQUE: Frontal view of the chest was obtained. FINDINGS: The lungs are clear with no focal consolidation. No evidence of pneumothorax, pulmonary edema, or pleural effusions. The cardiomediastinal silhouette is unremarkable. No acute osseous findings. XR/XR chest 1V IMPRESSION: No acute cardiopulmonary findings.
[2023-04-28 05:20] VITALS: BP 184/80; PULSE 75; RESP 20; TEMP 36.6; O2SAT 97; BMI 33.3
[2023-04-28 05:29] VITALS: BP 160/83; PULSE 68; RESP 20; TEMP 36.3; O2SAT 99
--- NOTE | 2023-04-28 05:31 | MHC.EDTECH ---
Patient came in from triage,changed into hospital attire, placed on the monitor tech,vitals taken BP is elevated 160/83 RN Lilia at bedside. Labs and SARS/FLU/RSV obtained and sent to lab.Son at bedside and call rabago within reach
[2023-04-28 05:40] VITALS: PULSE 62
--- NOTE | 2023-04-28 05:40 | ED_ITS ---
HPI - Chest Pain General Chief Complaint: Chest Pain Stated Complaint: Cough, Chest pain, Diff breathing Time Seen by Provider: 04/28/23 05:40 Source: patient Mode of arrival: ambulatory Limitations: language barrier History of Present Illness HPI narrative: Patient is 64 years old with history of hypertension anxiety hyperlipidemia asthma no known coronary disease comes here for sudden onset of mid chest pain started 14:00 yesterday when she was bending down now she has pain every time when she touches her front part of the chest or whenever she sits and bent forward no shortness of breath no fever no chills patient has been coughing for last 1 month does have history of asthma but her time the pain started patient was not coughing patient Related Data Previous Rx's Medication Instructions Recorded valacyclovir 1 gram tablet 1,000 mg PO BID #20 tabs 10/31/20 (Valtrex) clotrimazole 1 % topical cream 1 appl topical BID 4 weeks #45 04/24/21 grams albuterol sulfate 90 mcg/actuation 2 puff inhalation Q6H PRN 05/18/22 aerosol inhaler shortness of breath or wheezing #8.5 grams ezetimibe 10 mg tablet 10 mg PO DAILY #90 tabs 07/20/22 simvastatin 40 mg tablet 40 mg PO BEDTIME #90 tabs 07/20/22 lisinopril 5 mg tablet 5 mg PO DAILY #90 tabs 09/15/22 fluticasone propionate 50 1 inh inhalation BID #180 ea 04/23/23 mcg/actuation blister powder for inhalation (Flovent Diskus) nitroglycerin 400 mcg/spray 1 spray translingual Q5M PRN chest 04/23/23 translingual pain #4.9 grams Breo Ellipta 100 mcg-25 mcg/dose 1 inh inhalation DAILY #60 ea 04/26/23 powder for inhalation (fluticasone furoate-vilanterol) aspirin 81 mg tablet,delayed 81 mg PO DAILY #90 tabs 04/28/23 release ibuprofen 600 mg tablet 600 mg PO Q6H PRN fever or pain 04/28/23 #30 tabs Allergies Allergy/AdvReac Type Severity Reaction Status Date / Time atorvastatin [Lipitor] Allergy Unknown rash Verified 02/22/23 08:40 rosuvastatin [Crestor] AdvReac Unknown myalgia Verified 02/22/23 08:40 Review of Systems 2 Review of Systems: Yes all other systems are reviewed and are negative [facility] Past Medical History Medical History Annual physical exam Shoulder pain, right Anxiety 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 Stable angina HTN (hypertension) Asthma Overweight Hyperlipidemia Surgical History No pertinent past surgical history Family History Family History Father Unknown family medical history Social History Housing: House Alcohol intake: never Patient Tobacco Use Status: Never used Tobacco Smoked in Last 30 Days: No e-Cigarette/Vaping Use: Never Used Use of substances other than those prescribed or required for medical reasons: No Advance Directives: No Advance Directives Information Provided: No Current occupational status: retired Cognitive needs: No Hearing needs: No Vision needs: No Physical Exam 2 Vital Signs: Vital Signs: Last Vital Signs Temp 97.4 F 04/28/23 05:29 Pulse 70 04/28/23 06:32 Resp 18 04/28/23 06:32 BP 143/68 H 04/28/23 06:32 Pulse Ox 99 04/28/23 06:32 O2 Del Method Room Air 04/28/23 06:32 BMI result Body Mass Index 33.3 Appearance: Alert. Oriented X3. No acute distress. Eyes: PERRLA, No Nystagmus ENT: Pharynx normal. Oral Mucosa moist Neck: Normal inspection. Neck supple. CVS: Normal heart rate and rhythm. Pulses normal. No murmur rub or gallop no pericardial rub local tenderness at left parasternal area Respiratory: No respiratory distress. Equal air entry bilateral, no wheezing/rales/rhonchi Abdomen: Soft and nontender. Bowel sounds are present, no mass palpable, no CVA tenderness Skin: Skin warm and dry. Normal skin color. Normal skin turgor. Extremities: Trace lower extremity edema. No calf tenderness Neuro: Oriented X 3. No motor deficit. No sensory deficit.No cerebellar signs , cranial nerves II-XII intact Medications Administered Discontinued Medications Generic Name Dose Route Start Last Admin Trade Name Freq PRN Reason Stop Dose Admin Iohexol 100 ml 11/23/23 06:20 04/28/23 06:21 Iohexol 350 Mg/Ml 100 Ml Infus..Btl IV 04/28/23 06:21 100 ml ONCE ONE Administration Ketorolac Tromethamine 30 mg 04/28/23 06:23 04/28/23 06:36 Ketorolac Tromethamine 30 Mg/Ml Vial IVPUSH 04/28/23 06:24 30 mg ONCE ONE Administration Medical Decision Making Medical Decision Making [facility] Narrative: Patient localized left anterior chest pain for more than 12 hours duration EKG without any acute ischemic changes high sensitive troponin negative pain is reproducible CTA chest negative for PE or any other lesion Differential Diagnosis Differential Diagnoses: The differential diagnosis associated with the presentation includes Musculoskeletal chest pain/costochondritis/pericarditis/ACS/PE Admission/Observation Consideration of admission/observation: Escalation of care including admission/observation considered Lab Data 04/28/23 05:36 04/28/23 05:36 Labs: Lab Results 04/28/23 Range/Units 05:36 WBC 6.9 (4.8-10.8) X10*3/uL RBC 4.69 (4.20-5.50) X10*6/uL Hgb 13.9 (12.0-16.0) g/dl Hct 40.6 (37.0-47.0) % MCV 86.6 (80.0-98.0) fL MCH 29.6 (27.0-33.0) pg MCHC 34.2 (31.0-35.0) g/dl RDW 12.4 (11.0-16.0) % Plt Count 185 (160-400) X10*3/uL MPV 10.9 (9.4-12.3) fL Immature Gran % (Auto) 0.3 (0.0-0.4) % Neut % (Auto) 62.7 (45-73) % Lymph % (Auto) 26.6 (20-40) % Wagoner % (Auto) 8.8 (2-11) % Eos % (Auto) 1.2 (0-4) % Baso % (Auto) 0.4 (0-2) % Lymph # (Auto) 1.8 (1.2-4.9) X10*3/uL Wagoner # (Auto) 0.6 (0.1-1.2) X10*3/uL Eos # (Auto) 0.1 (0.0-0.4) X10*3/uL Baso # (Auto) 0.0 (0.0-0.2) X10*3/uL Abs Immat Gran (auto) 0.02 (0.00-0.03) X10*3/uL Absolute Neuts (auto) 4.3 (2.0-8.3) x10*3/uL Absolute Nucleated RBC 0.000 (0.0-0.012) X10*3/uL Nucleated RBC % (auto) 0.0 (0.0-0.2) /100WBC PT 10.6 L (11.1-13.3) SEC INR 0.9 (0.9-1.1) Sodium 140 (135-145) mmol/L Potassium 4.0 (3.3-5.1) mmol/L Chloride 105 (96-108) mmol/L Carbon Dioxide 25 (22-29) mmol/L Anion Gap 14 (12-20) BUN 13 (9-16) mg/dL Creatinine 0.74 (0.5-1.4) mg/dL Estim Creat Clear Calc 84.3 Estimated GFR > 60 Random Glucose 118 H (60-115) mg/dL Calcium 9.5 (8.4-10.2) mg/dL Total Bilirubin 0.8 (0.0-1.0) mg/dL AST 20 (5-31) U/L ALT 25 (0-31) U/L Alkaline Phosphatase 105 (39-117) U/L Troponin I High Sens < 2.7 (<3.5-17.0) ng/L B-Natriuretic Peptide 58 (<100) pg/mL Total Protein 7.4 (6.5-8.0) g/dL Albumin 4.2 (3.5-5.0) g/dL Influenza Type A (PCR) NEGATIVE (Negative) Influenza Type B (PCR) NEGATIVE (Negative) RSV RNA Qual (PCR) NEGATIVE (Negative) SARS-CoV-2 RNA (RT-PCR) NEGATIVE (Negative) Independent Interpretation I performed an independent interpretation of an: EKG Interpretation: Normal sinus rhythm heart rate 70 beats per minute LVH no acute ST wave changes no acute ischemia Discharge Plan Discharge Clinical Impression: Anterior chest wall pain Patient Disposition: Home, Self-Care Instructions: Chest Wall Pain (ED) Additional Instructions: Likely you have musculoskeletal chest pain Follow with PCP/cardiology for further management Ibuprofen for pain Take 81 mg aspirin daily Prescriptions: New aspirin 81 mg tablet,delayed release (DR/EC) 81 mg PO DAILY Qty: 90 0RF ibuprofen 600 mg tablet 600 mg PO Q6H PRN (Reason: fever or pain) Qty: 30 0RF No Action valacyclovir [Valtrex] 1 gram tablet 1,000 mg PO BID Qty: 20 0RF ezetimibe 10 mg tablet 10 mg PO DAILY Qty: 90 3RF simvastatin 40 mg tablet 40 mg PO BEDTIME Qty: 90 3RF lisinopril 5 mg tablet 5 mg PO DAILY Qty: 90 3RF Flovent Diskus 50 mcg/actuation blister with device 1 inh inhalation BID Qty: 180 1RF nitroglycerin 400 mcg/spray spray,non-aerosol 1 spray translingual Q5M PRN (Reason: chest pain) Qty: 4.9 1RF Rx Instructions: do not exceed 3 doses per episode fluticasone furoate-vilanterol [Breo Ellipta] 100-25 mcg/dose blister with device 1 inh inhalation DAILY Qty: 60 4RF clotrimazole 1 % cream 1 appl topical BID 28 Days Qty: 45 3RF albuterol sulfate 90 mcg/actuation HFA aerosol inhaler 2 puff inhalation Q6H PRN (Reason: shortness of breath or wheezing) Qty: 8.5 5RF
[2023-04-28 05:41] LABS: Basophils Percent Auto 0.4 % (0-2); Eosinophils Absolute Auto 0.1 X10*3/uL (0.0-0.4); Eosinophils Percent Auto 1.2 % (0-4); Hematocrit 40.6 % (37.0-47.0); Hemoglobin 13.9 g/dl (12.0-16.0); Imm Gran Abs Auto 0.02 X10*3/uL (0.00-0.03); Imm Gran Pct Auto 0.3 % (0.0-0.4); Lymphocytes Absolute Auto 1.8 X10*3/uL (1.2-4.9); Lymphocytes Percent Auto 26.6 % (20-40); MANUAL DIFF FLAG NO; Mean Corpuscular HGB Conc 34.2 g/dl (31.0-35.0); Mean Corpuscular Hemoglobin 29.6 pg (27.0-33.0); Mean Corpuscular Volume 86.6 fL (80.0-98.0); Mean Platelet Volume 10.9 fL (9.4-12.3); Monocytes Absolute Auto 0.6 X10*3/uL (0.1-1.2); Monocytes Percent Auto 8.8 % (2-11); Neutrophils Absolute Auto 4.3 x10*3/uL (2.0-8.3); Neutrophils Percent Auto 62.7 % (45-73); Platelet Count 185 X10*3/uL (160-400); Red Blood Count 4.69 X10*6/uL (4.20-5.50); Red Cell Distribution Width 12.4 % (11.0-16.0); White Blood Count 6.9 X10*3/uL (4.8-10.8)
--- NOTE | 2023-04-28 05:53 | PC.NURSE ---
Pt A&Ox4, reports 7/10 constant Left sided CP since 1400 yesterday while bending over to pick something up from floor. Pt states pain feels like pressure and radiates to L upper shoulder. Pt placed on bedside monitor, EKG obtained and reviewed by provider, IV line placed, blood work collected and sent to lab. Pt is primarily [place] speaking, son at bedside translating.
[2023-04-28 05:57] LABS: INTERNATIONAL NORM RATIO 0.9 (0.9-1.1); Prothrombin Time 10.6 SEC (11.1-13.3)
[2023-04-28 05:59] LABS: Alanine Aminotransferase 25 U/L (0-31); Albumin Level 4.2 g/dL (3.5-5.0); Alkaline Phosphatase 105 U/L (39-117); Anion Gap 14 (12-20); Aspartate Amino Transferase 20 U/L (5-31); Bilirubin Total 0.8 mg/dL (0.0-1.0); Blood Urea Nitrogen 13 mg/dL (9-16); Calcium 9.5 mg/dL (8.4-10.2); Carbon Dioxide 25 mmol/L (22-29); Chloride 105 mmol/L (96-108); Creatinine Clr Calc Pharmacy 84.3; Estimated Glomerular Filt Rate > 60; Glucose Random 118 mg/dL (60-115); Sodium 140 mmol/L (135-145); Total Protein 7.4 g/dL (6.5-8.0)
[2023-04-28 06:02] LABS: Troponin-I High Sensitivity < 2.7 ng/L (<3.5-17.0)
[2023-04-28 06:11] LABS: B Type Natriuretic Peptide 58 pg/mL (<100)
[2023-04-28 06:18] LABS: Influenza A PCR NEGATIVE (Negative); Influenza B PCR NEGATIVE (Negative); Resp Syncy Virus RNA Qual PCR NEGATIVE (Negative); SARS COV2 PCR INHOUSE NEGATIVE (Negative)
--- NOTE | 2023-04-28 06:19 | PC.NURSE ---
Pt ambulated to BR independently with steady gait.
[2023-04-28] MEDS: iohexoL 350 MG/ML 100 ML INFUS..BTL IV (06:21)
[2023-04-28 06:32] VITALS: BP 143/68; PULSE 70; RESP 18; O2SAT 99
[2023-04-28] MEDS: Ketorolac Tromethamine 30 MG/ML VIAL IVPUSH (06:36)
== END 2023-04-28 07:02 | disposition home or self-care (01) ==
PROVIDERS: Emergency Provider Internal Medicine; PCP Internal Medicine
DX: R07.89 Other chest pain (principal); R06.00 Dyspnea, unspecified; Z20.822 Contact with and (suspected) exposure to COVID-19; Z20.828 Contact with and (suspected) exposure to other viral communicable diseases; I10 Essential (primary) hypertension; E78.5 Hyperlipidemia, unspecified; J45.909 Unspecified asthma, uncomplicated; Z79.82 Long term (current) use of aspirin; Z79.899 Other long term (current) drug therapy; Z79.02 Long term (current) use of antithrombotics/antiplatelets
CPT/HCPCS: 0241U; 36415; 71045; 71275; 80053; 83880; 84484; 85025; 85610; 93005; 96374; 99284; 99285; J1885; Q9967

== ENCOUNTER 2023-05-02 14:07 | Outpatient (AMB) | payer MEDICARE, MEDICAID, SELFPAY ==
--- NOTE | 2023-05-02 14:08 | A.OFFPC_ITS ---
Vital Signs 05/02/23 14:09 Height 5 ft 5 in Weight 211 lb BMI 35.1 BP 160/80 H Blood Pressure Location Lt brachial Position Sitting Pulse 77 Pulse Source Pulse Oximeter Pulse Oximetry (%) 97 Oxygen Delivery Method Room Air Intake Visit Reasons: Cough , BP high, med review Intake Note: Pt is here today for a sick visit. Pt c/o elevated BP cough. Pt states that 6 weeks ago she started getting sick. Pt states that she went to ER last week for L side chest pain. Allergies atorvastatin [Lipitor] Allergy (Unknown, Verified 05/02/23 14:13) rash rosuvastatin [Crestor] Adverse Reaction (Unknown, Verified 05/02/23 14:13) myalgia Medication List - Last Reconciled 05/02/23 by Fiona Jiang MD albuterol sulfate 90 mcg/actuation 2 puffs inhalation Q6H PRN aspirin 81 mg PO DAILY Breo Ellipta 100-25 mcg/dose (fluticasone furoate-vilanterol) 1 inh inhalation DAILY NS clotrimazole 1% 1 appl topical BID 4 weeks codeine-guaifenesin 10-100 mg/5 mL 10 mL PO Q4-6H PRN ezetimibe 10 mg PO DAILY fluticasone propionate 50 mcg/actuation (Flovent Diskus) 1 inh inhalation BID ibuprofen 600 mg PO Q6H PRN nitroglycerin 1 spray translingual Q5M PRN olmesartan 20 mg PO DAILY simvastatin 40 mg PO BEDTIME valacyclovir (Valtrex) 1,000 mg PO BID Tobacco use date assessed: 05/02/23 HPI Cough , BP high, med review HPI Details Pt c/o of persistent dry cough, clear nasal discharge for 5 weeks. She denies fever, chills, pleurisy. Pt went to ER and had negative chest CT/EKG, labs. Pt uses Flovent bid. 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 Cristian Fabian, Lilly Whipple, Andrew Roque and colleagues, with an educational fabiola from [employer]. Review of Systems Const All systems reviewed & are unremarkable except as noted in HPI and below Reports no additional complaints Eyes Reports no additional complaints ENT Reports no additional complaints Card Reports no additional complaints Resp Reports no additional complaints GI Reports no additional complaints Reports no additional complaints Physical exam (Primary Care) Vital Signs: Last Vital Signs Pulse 77 05/02/23 14:09 BP 160/80 H 05/02/23 14:09 Pulse Ox 97 05/02/23 14:09 Oxygen Delivery Method Room Air 05/02/23 14:09 BMI result Body Mass Index 35.1 Tobacco/Smoking Status: Tobacco use Status Tobacco use date assessed 05/02/23 05/02/23 14:16 Patient Tobacco Use Status Never used Tobacco 05/02/23 14:16 e-Cigarette/Vaping Use Never Used 05/02/23 14:09 Thrive Assessment: Date of Thrive Assessment Date Thrive assessed 10/22/22 05/02/23 14:09 Const General: no acute distress HENMT Head: Yes normal to inspection Ears: hearing grossly normal bilaterally Face and sinus: Yes normal facial exam Eyes General: appearance normal, both eyes and all related structures Neck Neck: Yes no lymphadenopathy and Yes supple Resp Effort & Inspection: normal respiratory effort Auscultation: clear to auscultation bilaterally Cardio Rhythm: regular rhythm Heart sounds: S1 normal heart sound present and S2 normal heart sound present Assessment and Plan Assessment & Plan (1) Cough: Code(s): R05.9 - Cough, unspecified Plan: possible secondary to ACEI. Pt will stop Lisinopril and try Olmesartan 20 mg. BP check in 2 weeks, (2) Asthma: Code(s): J45.909 - Unspecified asthma, uncomplicated Plan: change Flovent to Breo as requested by insurance Medications: New olmesartan 20 mg PO DAILY 30 tabs 1RF codeine-guaifenesin 10-100 mg/5 mL 10 mL PO Q4-6H PRN 120 mL 0RF cough Discontinued lisinopril Discontinued Reason: Doctor's Order 5 mg PO DAILY 90 tabs 3RF Coding Level of Care Code Est Pt Level 3 (65065) Diagnoses Cough R05.9 Asthma J45.909
[2023-05-02 14:09] VITALS: BP 160/80; PULSE 77; O2SAT 97; BMI 35.1
== END 2023-05-02 15:02 | disposition home or self-care (01) ==
LOC: HO.HMGC 14:07
PROVIDERS: PCP Internal Medicine; Visit Provider Internal Medicine
DX: R05.9 Cough, unspecified (principal); J45.909 Unspecified asthma, uncomplicated
CPT/HCPCS: 99213

== ENCOUNTER 2023-05-13 14:00 | Outpatient (AMB) | payer MEDICARE, MEDICAID, SELFPAY ==
[2023-05-13 14:16] VITALS: BP 120/74; PULSE 67; O2SAT 95; BMI 34.9
--- NOTE | 2023-05-13 14:16 | MHC.PC.OV ---
Vital Signs 05/13/23 14:16 Height 5 ft 5 in Weight 210 lb BMI 34.9 BP 120/74 Blood Pressure Location Lt brachial Position Sitting Pulse 67 Pulse Source Pulse Oximeter Pulse Oximetry (%) 95 Oxygen Delivery Method Room Air Intake Visit Reasons: 2 week follow up Intake Note: Pt is here today for 2 weeks follow up visit. Allergies atorvastatin [Lipitor] Allergy (Unknown, Verified 05/13/23 14:20) rash rosuvastatin [Crestor] Adverse Reaction (Unknown, Verified 05/13/23 14:20) myalgia Medication List - Last Reconciled 05/13/23 by Fiona Jiang MD albuterol sulfate 90 mcg/actuation 2 puffs inhalation Q6H PRN aspirin 81 mg PO DAILY Breo Ellipta 100-25 mcg/dose (fluticasone furoate-vilanterol) 1 inh inhalation DAILY NS clotrimazole 1% 1 appl topical BID 4 weeks ezetimibe 10 mg PO DAILY fluticasone propionate 50 mcg/actuation (Flovent Diskus) 1 inh inhalation BID ibuprofen 600 mg PO Q6H PRN nitroglycerin 1 spray translingual Q5M PRN olmesartan 20 mg PO DAILY pravastatin 40 mg PO DAILY simvastatin 40 mg PO BEDTIME valacyclovir (Valtrex) 1,000 mg PO BID Tobacco use date assessed: 05/02/23 HPI 2 week follow up HPI Details Pt presents for f/u , feeling better . Cough resolved. HTN is well controlld on Olmesartan. Asthma is stable on Flovent. 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 Cristian Fabian, Lilly Whipple, Andrew Roque and colleagues, with an educational fabiola from [employer]. Review of Systems Const All systems reviewed & are unremarkable except as noted in HPI and below Reports no additional complaints Eyes Reports no additional complaints ENT Reports no additional complaints Card Reports no additional complaints Resp Reports no additional complaints GI Reports no additional complaints Reports no additional complaints Physical exam (Primary Care) Vital Signs: Last Vital Signs Pulse 67 05/13/23 14:16 BP 120/74 05/13/23 14:16 Pulse Ox 95 05/13/23 14:16 Oxygen Delivery Method Room Air 05/13/23 14:16 BMI result Body Mass Index 34.9 Tobacco/Smoking Status: Tobacco use Status Tobacco use date assessed 05/02/23 05/13/23 14:17 Patient Tobacco Use Status Never used Tobacco 05/13/23 14:17 e-Cigarette/Vaping Use Never Used 05/13/23 14:17 Thrive Assessment: Date of Thrive Assessment Date Thrive assessed 10/22/22 05/13/23 14:17 Const General: no acute distress HENMT Throat: Yes posterior oropharynx normal Neck Neck: Yes supple Resp Effort & Inspection: normal respiratory effort Auscultation: clear to auscultation bilaterally Cardio Rhythm: regular rhythm Heart sounds: S1 normal heart sound present and S2 normal heart sound present Assessment and Plan Assessment & Plan (1) HTN (hypertension): Code(s): I10 - Essential (primary) hypertension Plan: Continue olmesartan check basic metabolic panel today (2) Hyperlipidemia: Code(s): E78.5 - Hyperlipidemia, unspecified Plan: Simvastatin causes chronic itching and pravastatin 40 mg will replaced (3) Asthma: Code(s): J45.909 - Unspecified asthma, uncomplicated Plan: Continue Flovent , patient was switched to Breo next month Orders: Orders Basic Metabolic Panel Today E78.5 - Hyperlipidemia, unspecified, I10 - Essential (primary) hypertension Medications: New pravastatin 40 mg PO DAILY 90 tabs 3RF Discontinued simvastatin Discontinued Reason: Doctor's Order 40 mg PO BEDTIME 90 tabs 3RF Coding Level of Care Code Est Pt Level 3 (18870) Diagnoses HTN (hypertension) I10 Hyperlipidemia E78.5 Asthma J45.909
== END 2023-05-13 15:06 | disposition home or self-care (01) ==
PROVIDERS: PCP Internal Medicine; Visit Provider Internal Medicine
DX: I10 Essential (primary) hypertension (principal); E78.5 Hyperlipidemia, unspecified; J45.909 Unspecified asthma, uncomplicated
CPT/HCPCS: 99213

== ENCOUNTER 2023-05-13 14:52 | Outpatient (REF) | payer MEDICARE, OTHER, SELFPAY ==
[2023-05-13 16:31] LABS: Anion Gap 10 (12-20); Blood Urea Nitrogen 17 mg/dL (9-16); Calcium 9.4 mg/dL (8.4-10.2); Carbon Dioxide 28 mmol/L (22-29); Chloride 106 mmol/L (96-108); Estimated Glomerular Filt Rate > 60; Glucose Random 89 mg/dL (60-115); Potassium 4.4 mmol/L (3.3-5.1); Sodium 140 mmol/L (135-145)
== END 2023-05-13 14:53 | disposition home or self-care (01) ==
LOC: HO.HMGCLDS 14:52
PROVIDERS: PCP Internal Medicine; Visit Provider Internal Medicine
DX: I10 Essential (primary) hypertension (principal); E78.5 Hyperlipidemia, unspecified
CPT/HCPCS: 36415; 80048

== ENCOUNTER 2023-08-29 07:03 | Outpatient (REF) | payer MEDICARE, OTHER, SELFPAY ==
[2023-08-29 11:20] LABS: MANUAL DIFF FLAG NO
[2023-08-29 11:29] LABS: Basophils Percent Auto 0.5 % (0-2); Eosinophils Absolute Auto 0.1 X10*3/uL (0.0-0.4); Eosinophils Percent Auto 1.3 % (0-4); Hematocrit 41.3 % (37.0-47.0); Hemoglobin 13.5 g/dl (12.0-16.0); Imm Gran Abs Auto 0.04 X10*3/uL (0.00-0.03); Imm Gran Pct Auto 0.7 % (0.0-0.4); Lymphocytes Absolute Auto 1.8 X10*3/uL (1.2-4.9); Lymphocytes Percent Auto 32.8 % (20-40); Mean Corpuscular HGB Conc 32.7 g/dl (31.0-35.0); Mean Corpuscular Hemoglobin 29.9 pg (27.0-33.0); Mean Corpuscular Volume 91.4 fL (80.0-98.0); Mean Platelet Volume 11.8 fL (9.4-12.3); Monocytes Absolute Auto 0.5 X10*3/uL (0.1-1.2); Monocytes Percent Auto 9.8 % (2-11); Neutrophils Percent Auto 54.9 % (45-73); Platelet Count 202 X10*3/uL (160-400); Red Blood Count 4.52 X10*6/uL (4.20-5.50); Red Cell Distribution Width 12.6 % (11.0-16.0); White Blood Count 5.5 X10*3/uL (4.8-10.8)
[2023-08-29 11:36] LABS: Estimated Average Glucose 114 mg/dL; Hemoglobin A1c % 5.6 % (<6.0)
[2023-08-29 13:35] LABS: Alanine Aminotransferase 23 U/L (0-31); Alkaline Phosphatase 98 U/L (39-117); Anion Gap 11 (12-20); Aspartate Amino Transferase 20 U/L (5-31); Bilirubin Total 0.9 mg/dL (0.0-1.0); Blood Urea Nitrogen 16 mg/dL (9-16); Calcium 8.9 mg/dL (8.4-10.2); Carbon Dioxide 25 mmol/L (22-29); Chloride 105 mmol/L (96-108); Cholesterol 197 mg/dL (<200); Estimated Glomerular Filt Rate > 60; Glucose Fasting 99 mg/dL (60-99); HDL Cholesterol 59 mg/dL (>40); LDL Cholesterol Calculated 119 mg/dL (<100); Potassium 4.2 mmol/L (3.3-5.1); Sodium 137 mmol/L (135-145); Total Protein 7.3 g/dL (6.5-8.0); Triglycerides 97 mg/dL (<150)
== END 2023-08-29 07:04 | disposition home or self-care (01) ==
LOC: HO.HMGCLDS 07:03
PROVIDERS: PCP Internal Medicine; Visit Provider Internal Medicine
DX: Z00.00 Encounter for general adult medical examination without abnormal findings (principal); R73.9 Hyperglycemia, unspecified; E78.5 Hyperlipidemia, unspecified; I10 Essential (primary) hypertension
CPT/HCPCS: 36415; 80053; 80061; 83036; 85025

== ENCOUNTER 2023-11-11 12:43 | Outpatient (AMB) | payer MEDICARE, MEDICAID, SELFPAY ==
--- NOTE | 2023-11-11 12:46 | AM.OFFVISMDC ---
Intake Vital Signs 11/11/23 12:49 Height 5 ft 5 in Weight 208 lb BMI 34.6 BP 120/70 Blood Pressure Location Lt brachial Position Sitting Pulse 73 Pulse Source Pulse Oximeter Pulse Oximetry (%) 96 Oxygen Delivery Method Room Air Intake Visit Reasons: SWV Allergies atorvastatin [Lipitor] Allergy (Unknown, Verified 11/11/23 12:49) rash rosuvastatin [Crestor] Adverse Reaction (Unknown, Verified 11/11/23 12:49) myalgia Medication List - Last Reconciled 11/11/23 by Fiona Jiang MD albuterol sulfate 90 mcg/actuation 2 puffs inhalation Q6H PRN aspirin 81 mg PO DAILY Breo Ellipta 100-25 mcg/dose (fluticasone furoate-vilanterol) 1 inh inhalation DAILY NS clotrimazole 1% 1 appl topical BID 4 weeks ezetimibe 10 mg PO DAILY fluticasone propionate 50 mcg/actuation (Flovent Diskus) 1 inh inhalation BID ibuprofen 600 mg PO Q6H PRN nitroglycerin 1 spray translingual Q5M PRN olmesartan 20 mg PO DAILY pravastatin 40 mg PO DAILY valacyclovir (Valtrex) 1,000 mg PO BID HPI SWV HPI Details Initiated the conversation about Advanced Directives. Advanced Directives help? patients prepare for current and future decisions about their medical treatment? and place of care. Discussed with patient that it is a process where a patients? current condition and prognosis are reviewed, their wishes for information? regarding their illness are elicited, and likely medical dilemmas are presented? and options discussed. The form can be amended as needed, reviewed yearly and? make changes as needed IPPE/AWV ? year old presents? for her ? Annual? Wellness Visit, initial visit.? Medical / Social History Reviewed? Past Medical History ?Yes? . ? [place]? of Care / Care Team list updated ?Yes . ? Surgical/Hospitalization? History ?Yes . ? Current Medications? (including OTC and supplements) ?Yes . ? Family History ?Yes? . ? Tobacco? Control form ?Yes . ? AUDIT-C (Alcohol use) form? ?Yes . ? Illicit drug use in Social? History ?Yes . ? Current diagnosis of? depression? ?No ? Appropriate PHQ2/PHQ9? completed ?Yes . ? Data entered by ?Medical? [employer] and reviewed by provider ? Fall Risk ? Fall? History? Have you had any falls with? injury in the past year? ?No . ? Have you had two or more? falls in the past year? ?No . ? Fall Risk Assessment: ?No? falls in the past year . ? HRA filled out by? the patient, reviewed by Provider and scanned. ? IPPE/AWV ? Balance? [place]? ?Yes . ? Tandem? walk ?Yes . ? Walk and? Turn ?Yes . ? Rise from? sit to stand ?Yes . ?Vision? Corrective? lens ?Yes ? Vision? screen ? Up-to-date, has an appointment [] for vision? screening and glaucoma screening ?Hearing? Whisper? test ?pass .? Initiated the conversation about Advanced Directives. Advanced Directives help? patients prepare for current and future decisions about their medical treatment? and place of care. Discussed with patient that it is a process where a patients? current condition and prognosis are reviewed, their wishes for information? regarding their illness are elicited, and likely medical dilemmas are presented? and options discussed. The form can be amended as needed, reviewed yearly and? make changes as needed Written? Plan?Completed. See Patient? Documents. [facility] Medical History Annual physical exam Shoulder pain, right Anxiety 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 Stable angina HTN (hypertension) Asthma Overweight Hyperlipidemia Surgical History No pertinent past surgical history Family History Father Unknown family medical history Social History Housing: House Alcohol intake: never Patient Tobacco Use Status: Never used Tobacco e-Cigarette/Vaping Use: Never Used Current occupational status: retired Cognitive needs: No Hearing needs: No Vision needs: No Questionnaire Medicare Wellness Checkup [age] What gender do you identify with?: female During the past 4 weeks, how much have you been bothered by emotional problems such as feeling anxious, depressed, irritable, sad or downhearted, and blue?: not at all During the past 4 weeks, has your physical & emotional health limited your social activities with family, friends, neighbors, or groups?: not at all During the past 4 weeks, how much bodily pain have you generally had?: no pain During the past 4 weeks, was someone available to help you if you needed & wanted help?: yes, as much as I wanted During the past 4 weeks, what was the hardest physical activity you could do for at least 2 minutes?: moderate Can you get to places out of walking distance without help? (For eg., can you travel alone on buses, taxis or drive your car?): No Can you go shopping for groceries or clothes without someone's help?: No Can you prepare your own meals?: No Can you do your housework without help?: No Because of any health problems, do you need the help of another person with your personal care needs such as eating, bathing, dressing or getting around the house?: No Can you handle your own money without help?: Yes During the past 4 weeks, how would you rate your health in general?: very good During the past 4 weeks how have things been going for you?: very well; could hardly better Are you having difficulties driving your car?: no Do you always fasten your seat belt when you are in a car?: yes, usually During past 4 weeks, have you been bothered by the following: never: Falling or dizzy when standing up, Sexual problems?, Trouble eating well?, Teeth or denture problems? and Problems using the telephone? and seldom: Tiredness or fatigue? Have you fallen 2 or more times in the past year?: No Are you afraid of falling?: No Are you a smoker?: no During the past 4 weeks, how many drinks of wine, beer, or other alcoholic beverages did you have?: no alcohol at all Do you exercise for about 20 minutes 3 or more times a week?: yes, some of the time Have you been given information to help with the following?: no: Hazards in your house that might hurt you? and no: Keeping track of your medications? How often do you have trouble taking medicines the way you have been told to take them?: I always take medicine as prescribed How confident are you that you can control & manage most of your health problems?: very confident What is your race?: White Mini Mental State Exam (MMSE) Orientation What is the (year) (season) (date) (day) (month)?: year, season, date, day and month Where are we (state) (county) (town or city) (hospital) (floor)?: state, county, town or city, hospital/clinic and floor Registration Name of 3 unrelated objects clearly and slowly, then ask patient to repeat all 3 of them. (1st repeat determines score. Make sure they can repeat all three): object 1, object 2 and object 3 Attention & Calculation (CHOOSE ONE) Spell WORLD backwards (DLROW): 5 letters Recall Ask patient to repeat the 3 items from question #3.: object 1, object 2 and object 3 Language Show patient a wristwatch & ask what it is. Repeat for pencil.: watch and pencil Ask the patient to repeat the phrase 'No ifs, ands, or buts' after you.: correct Ask the patient to 'take a piece of paper with their right hand' 'fold paper in half' 'place paper on floor': take paper in right hand, fold paper in half and place paper on floor Print the sentence 'CLOSE YOUR EYES' on a piece. If patient actually closes eyes then score.: followed written direction Give patient a blank piece of paper & ask to write a sentence. Score if it contains a noun & verb.: sentence contains subject and verb Score Score: 29 Activity of Daily Living Bathing - sponge bath, tub bath or shower: receives no assistance (gets in/out by self, if usual bathing means Dressing - getting clothes from closets & drawers, including inner/outer garments & fasteners.: gets clothes & gets completely dressed without help Toileting - going to the 'toilet room' for urine/bowel elimination & cleaning self/arranging clothes: goes to toilet room, cleans self, arranges clothes without help Transfer: moves in & out of bed and chair without help (may use support object) Continence: controls urination/bowel movements completely by self Feeding: feeds self without help Total Score: 0 Information obtained from: patient Using telephone: independent Traveling: independent Shopping: independent Preparing meals: independent Housework: independent Taking medicine: independent Managing money: independent PHQ-9 Over the last 2 weeks, how often have you been bothered by any of the following problems? 1. Little interest or pleasure in doing things: not at all 2. Feeling down, depressed, or hopeless: not at all 3. Trouble falling or staying asleep, or sleeping too much: not at all 4. Feeling tired or having little energy: not at all 5. Poor appetite or overeating: not at all 6. Feeling bad about yourself - or that you are a failure or have let yourself or your family down: not at all 7. Trouble concentrating on things, such as reading the newspaper or watching television: not at all 8. Moving or speaking so slowly that other people could have noticed. Or the opposite - being so fidgety or restless that you have been moving around a lot more than usual: not at all 9. Thoughts that you would be better off or of hurting yourself in some way: not at all Total score: 0 Depression Screening Interpretation: Negative Depression Screening Done: Yes Source: Developed by Drs. Cristian Fabian, Lilly Whipple, Andrew Roque and colleagues, with an educational fabiola from [employer]. Review of Systems Const All systems reviewed & are unremarkable except as noted in HPI and below Reports no additional complaints Eyes Reports no additional complaints ENT Reports no additional complaints Card Reports no additional complaints Resp Reports no additional complaints GI Reports no additional complaints Reports no additional complaints Physical Exam Vital Signs: Last Vital Signs Pulse 73 11/11/23 12:49 BP 120/70 11/11/23 12:49 Pulse Ox 96 11/11/23 12:49 Oxygen Delivery Method Room Air 11/11/23 12:49 BMI result Body Mass Index 34.6 Const General: no acute distress HEENT Head: Yes normal to inspection Ears: hearing grossly normal bilaterally Neck Neck: Yes no lymphadenopathy and Yes supple Resp Effort & Inspection: normal respiratory effort Auscultation: clear to auscultation bilaterally Cardio Rhythm: regular rhythm Heart sounds: S1 normal heart sound present and S2 normal heart sound present GI Inspection: Yes normal to inspection Palpation (GI): Soft to palpation Percussion: Yes normal to percussion Extrem General: Yes no clubbing, cyanosis or edema Assessment & Plan Assessment & Plan (1) Hyperlipidemia: Code(s): E78.5 - Hyperlipidemia, unspecified Plan: Continue current medications (2) Asthma: Code(s): J45.909 - Unspecified asthma, uncomplicated Plan: Continue Breo Ellipta (3) HTN (hypertension): Code(s): I10 - Essential (primary) hypertension Plan: Continue olmesartan (4) Annual physical exam: Code(s): Z00.00 - Encounter for general adult medical examination without abnormal findings Plan: Well-balanced diet regular physical activity weight loss discussed with the patient, she declined mammogram and colonoscopy (5) Hyperglycemia: Code(s): R73.9 - Hyperglycemia, unspecified Plan: A1c is 5.6, ADA diet increase exercise weight loss discussed with the pt Orders: Orders Comprehensive [place]. Panel Fast 6 Months E78.5 - Hyperlipidemia, unspecified, I10 - Essential (primary) hypertension, J45.909 - Unspecified asthma, uncomplicated, R73.9 - Hyperglycemia, unspecified, Z00.00 - Encounter for general adult medical examination without abnormal findings Lipid Panel 6 Months E78.5 - Hyperlipidemia, unspecified, I10 - Essential (primary) hypertension, J45.909 - Unspecified asthma, uncomplicated, R73.9 - Hyperglycemia, unspecified, Z00.00 - Encounter for general adult medical examination without abnormal findings Complete Blood Count Auto Diff 6 Months E78.5 - Hyperlipidemia, unspecified, I10 - Essential (primary) hypertension, J45.909 - Unspecified asthma, uncomplicated, R73.9 - Hyperglycemia, unspecified, Z00.00 - Encounter for general adult medical examination without abnormal findings Hemoglobin A1c 6 Months E78.5 - Hyperlipidemia, unspecified, I10 - Essential (primary) hypertension, J45.909 - Unspecified asthma, uncomplicated, R73.9 - Hyperglycemia, unspecified, Z00.00 - Encounter for general adult medical examination without abnormal findings Medications: Refilled albuterol sulfate 90 mcg/actuation 2 puffs inhalation Q6H PRN 8.5 grams 5RF shortness of breath or wheezing Breo Ellipta 100-25 mcg/dose (fluticasone furoate-vilanterol) 1 inh inhalation DAILY 60 ea 4RF NS olmesartan 20 mg PO DAILY 90 tabs 3RF pravastatin 40 mg PO DAILY 90 tabs 3RF nitroglycerin do not exceed 3 doses per episode 1 spray translingual Q5M PRN 4.9 grams 1RF chest pain Quality Reporting (2019) Depression/Bipolar (159/160/161/177) PHQ-9: Total score: 0 Coding Level of Care Code Medicare Subsequent (G0439) Diagnoses Hyperlipidemia E78.5 Asthma J45.909 HTN (hypertension) I10 Annual physical exam Z00.00 Hyperglycemia R73.9 CPT Codes Advance Care Planning - Advance Care Planning discussion: On file, no changes ([id number]) Advance Care Planning - Time spent: 1-15 minutes, on File ([id number]) Advance Care Planning Advance Care Planning discussion: On file, no changes Forms completed: Health Care Proxy Time spent: 1-15 minutes, on File
[2023-11-11 12:49] VITALS: BP 120/70; PULSE 73; O2SAT 96; BMI 34.6
== END 2023-11-11 13:34 | disposition home or self-care (01) ==
PROVIDERS: PCP Internal Medicine; Visit Provider Internal Medicine
DX: Z00.00 Encounter for general adult medical examination without abnormal findings (principal); E78.5 Hyperlipidemia, unspecified; J45.909 Unspecified asthma, uncomplicated; I10 Essential (primary) hypertension; R73.9 Hyperglycemia, unspecified
CPT/HCPCS: 1123F; G0439

== ENCOUNTER 2024-04-25 07:12 | Outpatient (REF) | payer MEDICARE, OTHER, SELFPAY ==
[2024-04-25 10:06] LABS: MANUAL DIFF FLAG NO
[2024-04-25 10:16] LABS: Basophils Percent Auto 0.6 % (0-2); Eosinophils Absolute Auto 0.1 X10*3/uL (0.0-0.4); Eosinophils Percent Auto 1.9 % (0-4); Hematocrit 40.3 % (37.0-47.0); Hemoglobin 13.7 g/dl (12.0-16.0); Imm Gran Abs Auto 0.01 X10*3/uL (0.00-0.03); Imm Gran Pct Auto 0.2 % (0.0-0.4); Lymphocytes Absolute Auto 1.8 X10*3/uL (1.2-4.9); Lymphocytes Percent Auto 34.4 % (20-40); Mean Corpuscular Volume 88.4 fL (80.0-98.0); Mean Platelet Volume 11.6 fL (9.4-12.3); Monocytes Absolute Auto 0.6 X10*3/uL (0.1-1.2); Monocytes Percent Auto 10.9 % (2-11); Neutrophils Absolute Auto 2.7 x10*3/uL (2.0-8.3); Platelet Count 194 X10*3/uL (160-400); Red Blood Count 4.56 X10*6/uL (4.20-5.50); Red Cell Distribution Width 12.7 % (11.0-16.0); White Blood Count 5.2 X10*3/uL (4.8-10.8)
[2024-04-25 10:28] LABS: Estimated Average Glucose 120 mg/dL; Hemoglobin A1C 138.4863 umol/L; Hemoglobin A1c % 5.8 % (<6.0); Total Hemoglobin (HGBA1C) 3480.3335 umol/L
[2024-04-25 10:48] LABS: Alanine Aminotransferase 27 U/L (0-31); Alkaline Phosphatase 97 U/L (39-117); Anion Gap 10 (12-20); Aspartate Amino Transferase 24 U/L (5-31); Bilirubin Total 0.9 mg/dL (0.0-1.0); Blood Urea Nitrogen 14 mg/dL (9-16); Calcium 8.9 mg/dL (8.4-10.2); Carbon Dioxide 27 mmol/L (22-29); Chloride 105 mmol/L (96-108); Cholesterol 185 mg/dL (<200); Estimated Glomerular Filt Rate > 60; Glucose Fasting 103 mg/dL (60-99); HDL Cholesterol 53 mg/dL (>40); LDL Cholesterol Calculated 111 mg/dL (<100); Potassium 4.3 mmol/L (3.3-5.1); Sodium 138 mmol/L (135-145); Total Protein 7.1 g/dL (6.5-8.0); Triglycerides 109 mg/dL (<150)
== END 2024-04-25 07:13 | disposition home or self-care (01) ==
LOC: HO.HMGCLDS 07:12
PROVIDERS: PCP Internal Medicine; Visit Provider Internal Medicine
DX: Z00.00 Encounter for general adult medical examination without abnormal findings (principal); I10 Essential (primary) hypertension; E78.5 Hyperlipidemia, unspecified; R73.9 Hyperglycemia, unspecified; J45.909 Unspecified asthma, uncomplicated
CPT/HCPCS: 36415; 80053; 80061; 83036; 85025

== ENCOUNTER 2024-05-07 10:31 | Outpatient (AMB) | payer MEDICARE, MEDICAID, SELFPAY ==
[2024-05-07 11:12] VITALS: BP 110/66; PULSE 69; O2SAT 97; BMI 34.6
--- NOTE | 2024-05-07 11:12 | A.OFFPC_ITS ---
Vital Signs 05/07/24 11:12 Height 5 ft 5 in Weight 208 lb BMI 34.6 BP 110/66 Blood Pressure Location Lt brachial Position Sitting Pulse 69 Pulse Source Pulse Oximeter Pulse Oximetry (%) 97 Oxygen Delivery Method Room Air Intake Visit Reasons: 6 month follow up Intake Note: Pt is here today for 6 months follow up visit. Allergies atorvastatin [Lipitor] Allergy (Unknown, Verified 05/07/24 11:14) rash fluticasone furoate [From Breo Ellipta] Adverse Reaction (Intermediate, Verified 05/07/24 11:39) Cough vilanterol [From Breo Ellipta] Adverse Reaction (Intermediate, Verified 05/07/24 11:39) Cough rosuvastatin [Crestor] Adverse Reaction (Unknown, Verified 05/07/24 11:14) myalgia Medication List - Last Reconciled 05/07/24 by Fiona Jiang MD albuterol sulfate 90 mcg/actuation 2 puffs inhalation Q6H PRN aspirin 81 mg PO DAILY Breo Ellipta 100-25 mcg/dose (fluticasone furoate-vilanterol) 1 inh inhalation DAILY NS clotrimazole 1% 1 appl topical BID 4 weeks ezetimibe 10 mg PO DAILY fluticasone propionate 50 mcg/actuation (Flovent Diskus) 1 inh inhalation BID ibuprofen 600 mg PO Q6H PRN nitroglycerin 1 spray translingual Q5M PRN olmesartan 20 mg PO DAILY pravastatin 40 mg PO DAILY valacyclovir (Valtrex) 1,000 mg PO BID Tobacco use date assessed: 05/07/24 Fall risk assessment: No Falls in past year Last assessed Fall Risk: 05/07/24 Dental Screening Dental Screen Date: 02/22/23 HPI 6 month follow up HPI Details Pt presents for f/u HTN, hyperlipid, chronic asthma, stable on meds. [facility] Medical History Annual physical exam Shoulder pain, right Anxiety 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 Stable angina HTN (hypertension) Asthma Overweight Hyperlipidemia Surgical History No pertinent past surgical history Family History Father Unknown family medical history Social History Housing: House Alcohol intake: never Patient Tobacco Use Status: Never used Tobacco e-Cigarette/Vaping Use: Never Used service: No Current occupational status: retired Cognitive needs: No Hearing needs: No Vision needs: No Questionnaire Thrive Questionnaire Date Thrive assessed: 10/22/22 LATHA-7 AMB Questionnaire LATHA-7 Date LATHA - 7 assessed: 10/22/22 Source: Developed by Drs. Cristian Fabian, Lilly Whipple, Andrew Roque and colleagues, with an educational fabiola from [employer]. Review of Systems Const All systems reviewed & are unremarkable except as noted in HPI and below Eyes Reports no additional complaints ENT Reports no additional complaints Card Reports no additional complaints Resp Reports no additional complaints GI Reports no additional complaints Reports no additional complaints Physical exam (Primary Care) Vital Signs: Last Vital Signs Pulse 69 05/07/24 11:12 BP 110/66 05/07/24 11:12 Pulse Ox 97 05/07/24 11:12 Oxygen Delivery Method Room Air 05/07/24 11:12 BMI result Body Mass Index 34.6 Tobacco/Smoking Status: Tobacco use Status Tobacco use date assessed 05/07/24 05/07/24 11:16 Patient Tobacco Use Status Never used Tobacco 05/07/24 11:16 e-Cigarette/Vaping Use Never Used 05/07/24 11:16 Thrive Assessment: Date of Thrive Assessment Date Thrive assessed 10/22/22 05/07/24 11:16 Const General: no acute distress HENMT Head: Yes normal to inspection Ears: hearing grossly normal bilaterally Face and sinus: Yes normal facial exam Mouth: Normal oral and palatal mucosa present Eyes General: appearance normal, both eyes and all related structures Neck Neck: Yes no lymphadenopathy and Yes supple Resp Effort & Inspection: normal respiratory effort Auscultation: clear to auscultation bilaterally Cardio Rhythm: regular rhythm Heart sounds: S1 normal heart sound present and S2 normal heart sound present GI Inspection: Yes normal to inspection Palpation (GI): Soft to palpation Percussion: Yes normal to percussion Auscultation: normal bowel sounds Coding Level of Care Code Est Pt Level 4 (30719) Diagnoses Hyperlipidemia E78.5 Asthma J45.909 HTN (hypertension) I10 Hyperglycemia R73.9 Assessment & Plan Assessment & Plan (1) Hyperlipidemia: Code(s): E78.5 - Hyperlipidemia, unspecified Category: Medical Plan: cont meds (2) Asthma: Comment: Breo Ellipta caused cough Code(s): J45.909 - Unspecified asthma, uncomplicated Category: Medical Plan: Restart Flovent and continue albuterol as needed (3) HTN (hypertension): Code(s): I10 - Essential (primary) hypertension Category: Medical Plan: Continue olmesartan (4) Hyperglycemia: Code(s): R73.9 - Hyperglycemia, unspecified Category: Medical Plan: A1c is 5.8, ADA diet regular exercise weight loss discussed with the patient Orders: Orders Comprehensive [place]. Panel Fast 6 Months E78.5 - Hyperlipidemia, unspecified, I10 - Essential (primary) hypertension, J45.909 - Unspecified asthma, uncomplicated, R73.9 - Hyperglycemia, unspecified Lipid Panel 6 Months E78.5 - Hyperlipidemia, unspecified, I10 - Essential (primary) hypertension, J45.909 - Unspecified asthma, uncomplicated, R73.9 - Hyperglycemia, unspecified Complete Blood Count Auto Diff 6 Months E78.5 - Hyperlipidemia, unspecified, I10 - Essential (primary) hypertension, J45.909 - Unspecified asthma, uncom plicated, R73.9 - Hyperglycemia, unspecified Microalbumin, Random (w Creat) 6 Months E78.5 - Hyperlipidemia, unspecified, I10 - Essential (primary) hypertension, J45.909 - Unspecified asthma, uncomplicated, R73.9 - Hyperglycemia, unspecified Hemoglobin A1c 6 Months E78.5 - Hyperlipidemia, unspecified, I10 - Essential (primary) hypertension, J45.909 - Unspecified asthma, uncomplicated, R73.9 - Hyperglycemia, unspecified TSH reflex Free T4 6 Months E78.5 - Hyperlipidemia, unspecified, I10 - Essential (primary) hypertension, J45.909 - Unspecified asthma, uncomplicated, R73.9 - Hyperglycemia, unspecified Medications: Changed From fluticasone propionate 50 mcg/actuation (Flovent Diskus) 1 inh inhalation BID 180 ea 1RF To fluticasone propionate 50 mcg/actuation 1 inh inhalation BID 180 ea 3RF Discontinued Breo Ellipta 100-25 mcg/dose (fluticasone furoate-vilanterol) Discontinued Reason: Doctor's Order 1 inh inhalation DAILY 60 ea 4RF NS
== END 2024-05-07 11:42 | disposition home or self-care (01) ==
PROVIDERS: PCP Internal Medicine; Visit Provider Internal Medicine
DX: E78.5 Hyperlipidemia, unspecified (principal); J45.909 Unspecified asthma, uncomplicated; I10 Essential (primary) hypertension; R73.9 Hyperglycemia, unspecified

== ENCOUNTER → 2024-05-07 10:31 | Outpatient (BNVA) | payer MEDICARE, OTHER, SELFPAY | PROVIDERS: PCP Internal Medicine; Visit Provider Internal Medicine | DX: E78.5 Hyperlipidemia, unspecified (principal); I10 Essential (primary) hypertension; R73.9 Hyperglycemia, unspecified; J45.909 Unspecified asthma, uncomplicated | CPT/HCPCS: 99212 ==

== ENCOUNTER 2024-11-09 07:02 | Outpatient (REF) | payer MEDICARE, MEDICAID, OTHER, SELFPAY ==
[2024-11-09 10:20] LABS: MANUAL DIFF FLAG NO
[2024-11-09 10:28] LABS: Basophils Percent Auto 0.6 % (0-2); Eosinophils Absolute Auto 0.1 X10*3/uL (0.0-0.4); Eosinophils Percent Auto 1.7 % (0-4); Hematocrit 39.1 % (37.0-47.0); Hemoglobin 13.1 g/dl (12.0-16.0); Imm Gran Abs Auto 0.02 X10*3/uL (0.00-0.03); Imm Gran Pct Auto 0.4 % (0.0-0.4); Lymphocytes Absolute Auto 1.8 X10*3/uL (1.2-4.9); Lymphocytes Percent Auto 33.6 % (20-40); Mean Corpuscular HGB Conc 33.5 g/dl (31.0-35.0); Mean Corpuscular Hemoglobin 29.4 pg (27.0-33.0); Mean Corpuscular Volume 87.7 fL (80.0-98.0); Mean Platelet Volume 11.5 fL (9.4-12.3); Monocytes Absolute Auto 0.7 X10*3/uL (0.1-1.2); Monocytes Percent Auto 11.9 % (2-11); Neutrophils Absolute Auto 2.8 x10*3/uL (2.0-8.3); Neutrophils Percent Auto 51.8 % (45-73); Platelet Count 176 X10*3/uL (160-400); Red Blood Count 4.46 X10*6/uL (4.20-5.50); Red Cell Distribution Width 12.7 % (11.0-16.0); White Blood Count 5.5 X10*3/uL (4.8-10.8)
[2024-11-09 11:05] LABS: Estimated Average Glucose 120 mg/dL; Hemoglobin A1c % 5.8 % (<6.0)
[2024-11-09 11:10] LABS: Alanine Aminotransferase 28 U/L (0-31); Albumin Level 4.2 g/dL (3.5-5.0); Anion Gap 10 (12-20); Aspartate Amino Transferase 25 U/L (5-31); Bilirubin Total 0.8 mg/dL (0.0-1.0); Blood Urea Nitrogen 16 mg/dL (9-16); Calcium 9.2 mg/dL (8.4-10.2); Carbon Dioxide 28 mmol/L (22-29); Chloride 107 mmol/L (96-108); Cholesterol 190 mg/dL (<200); Estimated Glomerular Filt Rate > 60; Glucose Fasting 102 mg/dL (60-99); HDL Cholesterol 53 mg/dL (>40); LDL Cholesterol Calculated 114 mg/dL (<100); Potassium 4.6 mmol/L (3.3-5.1); Sodium 140 mmol/L (135-145); Total Protein 6.8 g/dL (6.5-8.0); Triglycerides 118 mg/dL (<150)
[2024-11-09 11:56] LABS: Alkaline Phosphatase 90 U/L (39-117)
[2024-11-09 12:26] LABS: Creatinine Urine 116.27 mg/dL; Microalbum/Creatinine Ratio Ur 6.8 ug/mg cr (<30)
== END 2024-11-09 07:03 | disposition home or self-care (01) ==
LOC: HO.HMGCLDS 07:02
PROVIDERS: PCP Internal Medicine; Visit Provider Internal Medicine
DX: E78.5 Hyperlipidemia, unspecified (principal); I10 Essential (primary) hypertension; J45.909 Unspecified asthma, uncomplicated; R73.9 Hyperglycemia, unspecified
CPT/HCPCS: 36415; 80053; 80061; 82043; 82570; 83036; 84443; 85025

== ENCOUNTER 2024-11-28 09:34 | Outpatient (AMB) | payer MEDICARE, MEDICAID, SELFPAY ==
--- NOTE | 2024-11-28 09:37 | A.OFFVIS_ITS ---
Intake Vital Signs 11/28/24 09:41 Height 5 ft 5 in Weight 206 lb BMI 34.3 BP 128/80 Blood Pressure Location Lt brachial Position Sitting Respiration 20 Pulse 69 Pulse Source Pulse Oximeter Temp 98.2 F Temp Source Oral Pulse Oximetry (%) 97 Oxygen Delivery Method Room Air Intake Visit Reasons: AWV Allergies atorvastatin (Lipitor) Allergy (Unknown, Verified 11/28/24 09:38) rash fluticasone furoate (From Breo Ellipta) Adverse Reaction (Intermediate, Verified 11/28/24 09:38) Cough vilanterol (From Breo Ellipta) Adverse Reaction (Intermediate, Verified 11/28/24 09:38) Cough rosuvastatin (Crestor) Adverse Reaction (Unknown, Verified 11/28/24 09:38) myalgia Medication List - Last Reconciled 11/28/24 by Fiona Jiang MD albuterol sulfate 90 mcg/actuation 2 puffs inhalation Q6H PRN Arnuity Ellipta 100 mcg/actuation (fluticasone furoate) 1 inh inhalation DAILY NS aspirin 81 mg PO DAILY clotrimazole 1% 1 appl topical BID 4 weeks ezetimibe 10 mg PO DAILY ibuprofen 600 mg PO Q6H PRN nitroglycerin 1 spray translingual Q5M PRN nitroglycerin 0.4 mg sublingual Q5M PRN olmesartan 20 mg PO DAILY pravastatin 40 mg PO DAILY valacyclovir (Valtrex) 1,000 mg PO BID HPI AWV HPI Details Initiated the conversation about Advanced Directives. Advanced Directives help? patients prepare for current and future decisions about their medical treatment? and place of care. Discussed with patient that it is a process where a patients? current condition and prognosis are reviewed, their wishes for information? regarding their illness are elicited, and likely medical dilemmas are presented? and options discussed. The form can be amended as needed, reviewed yearly and? make changes as needed IPPE/AWV ? year old presents? for her ? Annual? Wellness Visit, initial visit.? Medical / Social History Reviewed? Past Medical History ?Yes? . ? [place]? of Care / Care Team list updated ?Yes . ? Surgical/Hospitalization? History ?Yes . ? Current Medications? (including OTC and supplements) ?Yes . ? Family History ?Yes? . ? Tobacco? Control form ?Yes . ? AUDIT-C (Alcohol use) form? ?Yes . ? Illicit drug use in Social? History ?Yes . ? Current diagnosis of? depression? ?No ? Appropriate PHQ2/PHQ9? completed ?Yes . ? Data entered by ?Medical? Frame Opener and reviewed by provider ? Fall Risk ? Fall? History? Have you had any falls with? injury in the past year? ?No . ? Have you had two or more? falls in the past year? ?No . ? Fall Risk Assessment: ?No? falls in the past year . ? HRA filled out by? the patient, reviewed by Provider and scanned. ? IPPE/AWV ? Balance? [place]? ?Yes . ? Tandem? walk ?Yes . ? Walk and? Turn ?Yes . ? Rise from? sit to stand ?Yes . ?Vision? Corrective? lens ?Yes ? Vision? screen ? Up-to-date, has an appointment [] for vision? screening and glaucoma screening ?Hearing? Whisper? test ?pass .? Initiated the conversation about Advanced Directives. Advanced Directives help? patients prepare for current and future decisions about their medical treatment? and place of care. Discussed with patient that it is a process where a patients? current condition and prognosis are reviewed, their wishes for information? regarding their illness are elicited, and likely medical dilemmas are presented? and options discussed. The form can be amended as needed, reviewed yearly and? make changes as needed Written? Plan?Completed. See Patient? Documents. [facility] Medical History (Updated 11/28/24 @ 10:31 by Fiona Jiang MD) Annual physical exam Shoulder pain, right Anxiety 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 Stable angina HTN (hypertension) Asthma Overweight Hyperlipidemia Surgical History No pertinent past surgical history Family History Father Unknown family medical history Social History Housing: House Alcohol intake: never Patient Tobacco Use Status: Never used Tobacco e-Cigarette/Vaping Use: Never Used service: No Current occupational status: retired Cognitive needs: No Hearing needs: No Vision needs: No Questionnaire Medicare Wellness Checkup [age] What gender do you identify with?: female During the past 4 weeks, how much have you been bothered by emotional problems such as feeling anxious, depressed, irritable, sad or downhearted, and blue?: not at all During the past 4 weeks, has your physical & emotional health limited your social activities with family, friends, neighbors, or groups?: not at all During the past 4 weeks, how much bodily pain have you generally had?: no pain During the past 4 weeks, was someone available to help you if you needed & wanted help?: yes, as much as I wanted During the past 4 weeks, what was the hardest physical activity you could do for at least 2 minutes?: moderate Can you get to places out of walking distance without help? (For eg., can you travel alone on buses, taxis or drive your car?): No Can you go shopping for groceries or clothes without someone's help?: No Can you prepare your own meals?: No Can you do your housework without help?: No Because of any health problems, do you need the help of another person with your personal care needs such as eating, bathing, dressing or getting around the house?: No Can you handle your own money without help?: Yes During the past 4 weeks, how would you rate your health in general?: very good During the past 4 weeks how have things been going for you?: very well; could hardly better Are you having difficulties driving your car?: no Do you always fasten your seat belt when you are in a car?: yes, usually During past 4 weeks, have you been bothered by the following: never: Falling or dizzy when standing up, Sexual problems?, Trouble eating well?, Teeth or denture problems? and Problems using the telephone? and seldom: Tiredness or fatigue? Have you fallen 2 or more times in the past year?: No Are you afraid of falling?: No Are you a smoker?: no During the past 4 weeks, how many drinks of wine, beer, or other alcoholic beverages did you have?: no alcohol at all Do you exercise for about 20 minutes 3 or more times a week?: yes, some of the time Have you been given information to help with the following?: no: Hazards in your house that might hurt you? and no: Keeping track of your medications? How often do you have trouble taking medicines the way you have been told to take them?: I always take medicine as prescribed How confident are you that you can control & manage most of your health problems?: very confident What is your race?: White Mini Mental State Exam (MMSE) Orientation What is the (year) (season) (date) (day) (month)?: year, season, date, day and month Where are we (state) (county) (town or city) (hospital) (floor)?: state, county, town or city, hospital/clinic and floor Registration Name of 3 unrelated objects clearly and slowly, then ask patient to repeat all 3 of them. (1st repeat determines score. Make sure they can repeat all three): object 1, object 2 and object 3 Attention & Calculation (CHOOSE ONE) Spell WORLD backwards (DLROW): 5 letters Recall Ask patient to repeat the 3 items from question #3.: object 1, object 2 and object 3 Language Show patient a wristwatch & ask what it is. Repeat for pencil.: watch and pencil Ask the patient to repeat the phrase 'No ifs, ands, or buts' after you.: correct Ask the patient to 'take a piece of paper with their right hand' 'fold paper in half' 'place paper on floor': take paper in right hand, fold paper in half and place paper on floor Print the sentence 'CLOSE YOUR EYES' on a piece. If patient actually closes eyes then score.: followed written direction Give patient a blank piece of paper & ask to write a sentence. Score if it contains a noun & verb.: sentence contains subject and verb Score Score: 29 PHQ-9 Over the last 2 weeks, how often have you been bothered by any of the following problems? 1. Little interest or pleasure in doing things: not at all 2. Feeling down, depressed, or hopeless: not at all 3. Trouble falling or staying asleep, or sleeping too much: not at all 4. Feeling tired or having little energy: not at all 5. Poor appetite or overeating: not at all 6. Feeling bad about yourself - or that you are a failure or have let yourself or your family down: not at all 7. Trouble concentrating on things, such as reading the newspaper or watching television: not at all 8. Moving or speaking so slowly that other people could have noticed. Or the opposite - being so fidgety or restless that you have been moving around a lot more than usual: not at all 9. Thoughts that you would be better off or of hurting yourself in some way: not at all Total score: 0 Depression Screening Interpretation: Negative Depression Screening Done: Yes 32314 - PHQ-9 Billing: Yes Source: Developed by Drs. Cristian Fabian, Lilly Whipple, Andrew Roque and colleagues, with an educational fabiola from [employer]. Review of Systems Const All systems reviewed & are unremarkable except as noted in HPI and below Eyes Reports no additional complaints ENT Reports no additional complaints Card Reports no additional complaints Resp Reports no additional complaints GI Reports no additional complaints Reports no additional complaints Physical Exam Vital Signs: Last Vital Signs Temp 98.2 F 11/28/24 09:41 Pulse 69 11/28/24 09:41 Resp 20 11/28/24 09:41 BP 128/80 11/28/24 09:41 Pulse Ox 97 11/28/24 09:41 Oxygen Delivery Method Room Air 11/28/24 09:41 BMI result Body Mass Index 34.3 Const General: no acute distress HEENT Head: Yes normal to inspection Eyes General: appearance normal, both eyes and all related structures Neck Neck: Yes no lymphadenopathy and Yes supple Resp Effort & Inspection: normal respiratory effort Auscultation: clear to auscultation bilaterally Cardio Rhythm: regular rhythm Heart sounds: S1 normal heart sound present and S2 normal heart sound present GI Inspection: Yes normal to inspection Palpation (GI): Soft to palpation Percussion: Yes normal to percussion Auscultation: normal bowel sounds Extrem General: Yes no clubbing, cyanosis or edema Assessment & Plan Assessment & Plan (1) HTN (hypertension): Code(s): I10 - Essential (primary) hypertension Plan: Continue current medications (2) Hyperlipidemia: Code(s): E78.5 - Hyperlipidemia, unspecified Plan: Continue statin (3) Hyperglycemia: Code(s): R73.9 - Hyperglycemia, unspecified Plan: A1c is 5.8, continue ADA diet increase physical activity weight loss discussed with the patient. Follow-up in 6 months with a fasting labs before (4) Annual physical exam: Code(s): Z00.00 - Encounter for general adult medical examination without abnormal findings Plan: Well-balanced diet regular physical activity weight loss discussed with the patient she refused colonoscopy mammogram and Cologuard Orders: Orders Lipid Panel 6 Months E78.5 - Hyperlipidemia, unspecified, I10 - Essential (primary) hypertension, R73.9 - Hyperglycemia, unspecified Hemoglobin A1c 6 Months E78.5 - Hyperlipidemia, unspecified, I10 - Essential (primary) hypertension, R73.9 - Hyperglycemia, unspecified Microalbumin, Random (w Creat) 6 Months E78.5 - Hyperlipidemia, unspecified, I10 - Essential (primary) hypertension, R73.9 - Hyperglycemia, unspecified Comprehensive [place]. Panel Fast 6 Months E78.5 - Hyperlipidemia, unspecified, I10 - Essential (primary) hypertension, R73.9 - Hyperglycemia, unspecified Complete Blood Count Auto Diff 6 Months E78.5 - Hyperlipidemia, unspecified, I10 - Essential (primary) hypertension, R73.9 - Hyperglycemia, unspecified Medications: Refilled Arnuity Ellipta 100 mcg/actuation (fluticasone furoate) 1 inh inhalation DAILY 90 ea 3RF NS pravastatin 40 mg PO DAILY 90 tabs 3RF Arnuity Ellipta 100 mcg/actuation (fluticasone furoate) 1 inh inhalation DAILY 90 ea 3RF NS nitroglycerin do not exceed 3 doses per episode 1 spray translingual Q5M PRN 4.9 grams 1RF chest pain olmesartan 20 mg PO DAILY 90 tabs 3RF albuterol sulfate 90 mcg/actuation 2 puffs inhalation Q6H PRN 8.5 grams 5RF shortness of breath or wheezing ezetimibe 10 mg PO DAILY 90 tabs 3RF Quality Reporting (2019) Depression/Bipolar (159/160/161/177) PHQ-9: Total score: 0 Coding Level of Care Code Medicare Subsequent (G0439) Diagnoses HTN (hypertension) I10 Hyperlipidemia E78.5 Hyperglycemia R73.9 Annual physical exam Z00.00 CPT Codes Advance Care Planning - Advance Care Planning discussion: On file, no changes ([id number]) Advance Care Planning - Time spent: 1-15 minutes, on File ([id number]) Additional Codes PHQ-9 - 54511 - PHQ-9 Billing: Yes ([id number]) Advance Care Planning Advance Care Planning discussion: On file, no changes Forms completed: Health Care Proxy Time spent: 1-15 minutes, on File Did not discuss due to Cultural/Spiritual beliefs: Yes
[2024-11-28 09:41] VITALS: BP 128/80; PULSE 69; RESP 20; TEMP 36.8; O2SAT 97; BMI 34.3
== END 2024-11-28 10:30 | disposition home or self-care (01) ==
PROVIDERS: PCP Internal Medicine; Visit Provider Internal Medicine
DX: Z00.00 Encounter for general adult medical examination without abnormal findings (principal); I10 Essential (primary) hypertension; E78.5 Hyperlipidemia, unspecified; R73.9 Hyperglycemia, unspecified

== ENCOUNTER → 2024-11-28 09:34 | Outpatient (BNVA) | payer MEDICARE, MEDICAID, OTHER, SELFPAY | PROVIDERS: PCP Internal Medicine; Visit Provider Internal Medicine | DX: Z00.00 Encounter for general adult medical examination without abnormal findings (principal); I10 Essential (primary) hypertension; R73.9 Hyperglycemia, unspecified; E78.5 Hyperlipidemia, unspecified | CPT/HCPCS: 96127 ==

== ENCOUNTER 2025-05-22 07:14 | Outpatient (REF) | payer MEDICARE, MEDICAID, SELFPAY ==
[2025-05-22 10:42] LABS: MANUAL DIFF FLAG NO
[2025-05-22 10:52] LABS: Hematocrit 42.8 % (37.0-47.0); Hemoglobin 13.9 g/dl (12.0-16.0); Imm Gran Abs Auto 0.01 X10*3/uL (0.00-0.03); Imm Gran Pct Auto 0.2 % (0.0-0.4); Lymphocytes Absolute Auto 1.8 X10*3/uL (1.2-4.9); Mean Corpuscular HGB Conc 32.5 g/dl (31.0-35.0); Mean Corpuscular Hemoglobin 29.2 pg (27.0-33.0); Mean Corpuscular Volume 89.9 fL (80.0-98.0); NRBC Abs Auto 0.000 X10*3/uL (0.0-0.012); NRBC Pct Auto 0.0 /100WBC (0.0-0.2); Platelet Count 199 X10*3/uL (160-400); Red Blood Count 4.76 X10*6/uL (4.20-5.50); White Blood Count 5.6 X10*3/uL (4.8-10.8)
[2025-05-22 11:08] LABS: Alanine Aminotransferase 30 U/L (0-31); Albumin Level 4.4 g/dL (3.5-5.0); Alkaline Phosphatase 96 U/L (39-117); Anion Gap 12 (12-20); Aspartate Amino Transferase 31 U/L (5-31); Blood Urea Nitrogen 13 mg/dL (9-16); Calcium 9.7 mg/dL (8.4-10.2); Carbon Dioxide 27 mmol/L (22-29); Chloride 104 mmol/L (96-108); Cholesterol 184 mg/dL (<200); Estimated Glomerular Filt Rate > 60; HDL Cholesterol 55 mg/dL (>40); Potassium 4.5 mmol/L (3.3-5.1); Sodium 138 mmol/L (135-145); Total Protein 7.4 g/dL (6.5-8.0); Triglycerides 120 mg/dL (<150)
[2025-05-22 11:30] LABS: Microalbum/Creatinine Ratio Ur 6.8 ug/mg cr (<30)
== END 2025-05-22 07:15 | disposition home or self-care (01) ==
LOC: HO.HMGCLDS 07:14
PROVIDERS: PCP Internal Medicine; Visit Provider Internal Medicine
DX: I10 Essential (primary) hypertension (principal); E78.5 Hyperlipidemia, unspecified; R73.9 Hyperglycemia, unspecified
CPT/HCPCS: 36415; 80053; 80061; 82043; 82570; 83036; 85025

== ENCOUNTER 2025-05-27 08:54 | Outpatient (AMB) | payer MEDICARE, MEDICAID, SELFPAY ==
[2025-05-27 08:56] VITALS: BP 124/74; PULSE 71; RESP 17; TEMP 36.8; O2SAT 96; BMI 34.8
--- NOTE | 2025-05-27 08:56 | A.OFFPC_ITS ---
Vital Signs 05/27/25 08:56 Height 5 ft 5 in Weight 209 lb BMI 34.8 BP 124/74 Blood Pressure Location Lt brachial Position Sitting Respiration 17 Pulse 71 Pulse Source Pulse Oximeter Temp 98.2 F Temp Source Oral Pulse Oximetry (%) 96 Oxygen Delivery Method Room Air Intake Visit Reasons: 6 months f/up Intake Note: Pt is here today for 6 months follow up visit. Allergies atorvastatin (Lipitor) Allergy (Unknown, Verified 05/27/25 08:58) rash fluticasone furoate (From Breo Ellipta) Adverse Reaction (Intermediate, Verified 05/27/25 08:58) Cough vilanterol (From Breo Ellipta) Adverse Reaction (Intermediate, Verified 05/27/25 08:58) Cough rosuvastatin (Crestor) Adverse Reaction (Unknown, Verified 05/27/25 08:58) myalgia Medication List - Last Reconciled 05/27/25 by Fiona Jiang MD albuterol sulfate 90 mcg/actuation 2 puffs inhalation Q6H PRN Arnuity Ellipta 100 mcg/actuation (fluticasone furoate) 1 inh inhalation DAILY NS aspirin 81 mg PO DAILY clotrimazole 1% 1 appl topical BID 4 weeks ezetimibe 10 mg PO DAILY ibuprofen 600 mg PO Q6H PRN nitroglycerin 0.4 mg sublingual Q5M PRN nitroglycerin 1 spray translingual Q5M PRN olmesartan 20 mg PO DAILY pravastatin 40 mg PO DAILY valacyclovir (Valtrex) 1,000 mg PO BID Tobacco use date assessed: 05/27/25 Fall risk assessment: No Falls in past year Last assessed Fall Risk: 05/27/25 Dental Screening Dental Screen Date: 05/27/25 Did you have a dental visit in the last 12 months?: Yes Did you have a dental problem in the last 6 months where you did not have access to dental care?: No Was dental information given to patient?: Patient has dentist HPI 6 months f/up HPI Details Pt presents for f/u HTN, hyperlipid, chronic asthma, stable on meds. [facility] Medical History (Updated 05/27/25 @ 10:06 by Fiona Jiang MD) Colonoscopy refused Cough Annual physical exam Shoulder pain, right Anxiety 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 Stable angina HTN (hypertension) Asthma Overweight Hyperlipidemia Surgical History No pertinent past surgical history Family History Father Unknown family medical history Social History Housing: House Alcohol intake: never Patient Tobacco Use Status: Never used Tobacco e-Cigarette/Vaping Use: Never Used service: No Current occupational status: retired Cognitive needs: No Hearing needs: No Vision needs: No Questionnaire Thrive Questionnaire Date Thrive assessed: 10/22/22 LATHA-7 AMB Questionnaire LATHA-7 Date LATHA - 7 assessed: 10/22/22 Source: Developed by Drs. Cristian Fabian, Lilly Whipple, Andrew Roque and colleagues, with an educational fabiola from [employer]. Review of Systems Const All systems reviewed & are unremarkable except as noted in HPI and below Eyes Reports no additional complaints ENT Reports no additional complaints Card Reports no additional complaints Resp Reports no additional complaints GI Reports no additional complaints Reports no additional complaints Physical exam (Primary Care) Vital Signs: Last Vital Signs Temp 98.2 F 05/27/25 08:56 Pulse 71 05/27/25 08:56 Resp 17 05/27/25 08:56 BP 124/74 05/27/25 08:56 Pulse Ox 96 05/27/25 08:56 Oxygen Delivery Method Room Air 05/27/25 08:56 BMI result Body Mass Index 34.8 Tobacco/Smoking Status: Tobacco use Status Tobacco use date assessed 05/27/25 05/27/25 09:00 Patient Tobacco Use Status Never used Tobacco 05/27/25 09:00 e-Cigarette/Vaping Use Never Used 05/27/25 08:56 Thrive Assessment: Date of Thrive Assessment Date Thrive assessed 10/22/22 05/27/25 08:56 Const General: no acute distress HENMT Head: Yes normal to inspection Ears: hearing grossly normal bilaterally Throat: Yes posterior oropharynx normal Neck Neck: Yes no lymphadenopathy and Yes supple Resp Effort & Inspection: normal respiratory effort Auscultation: clear to auscultation bilaterally Cardio Rhythm: regular rhythm Heart sounds: S1 normal heart sound present and S2 normal heart sound present GI Inspection: Yes normal to inspection Palpation (GI): Soft to palpation Percussion: Yes normal to percussion Auscultation: normal bowel sounds Coding Level of Care Code Est Pt Level 4 (34771) Diagnoses HTN (hypertension) I10 Hyperglycemia R73.9 Asthma J45.909 Hyperlipidemia E78.5 Assessment & Plan Assessment & Plan (1) HTN (hypertension): Code(s): I10 - Essential (primary) hypertension Category: Medical Plan: cont meds (2) Hyperglycemia: Code(s): R73.9 - Hyperglycemia, unspecified Category: Medical Plan: a1c 5.7, cont ADA, increase physical activity weight loss discussed with the patient. Follow-up in 6 months with a fasting labs before (3) Asthma: Comment: controlled Arnuity Code(s): J45.909 - Unspecified asthma, uncomplicated Category: Medical Plan: Continue Arnuity (4) Hyperlipidemia: Code(s): E78.5 - Hyperlipidemia, unspecified Category: Medical Plan: Continue current medications Orders: Orders Comprehensive [place]. Panel Fast 6 Months E78.5 - Hyperlipidemia, unspecified, I10 - Essential (primary) hypertension, R73.9 - Hyperglycemia, unspecified Complete Blood Count Auto Diff 6 Months E78.5 - Hyperlipidemia, unspecified, I10 - Essential (primary) hypertension, R73.9 - Hyperglycemia, unspecified Microalbumin, Random (w Creat) 6 Months E78.5 - Hyperlipidemia, unspecified, I10 - Essential (primary) hypertension, R73.9 - Hyperglycemia, unspecified Hemoglobin A1c 6 Months E78.5 - Hyperlipidemia, unspecified, I10 - Essential (primary) hypertension, R73.9 - Hyperglycemia, unspecified Lipid Panel 6 Months E78.5 - Hyperlipidemia, unspecified, I10 - Essential (primary) hypertension, R73.9 - Hyperglycemia, unspecified
== END 2025-05-27 09:49 | disposition home or self-care (01) ==
LOC: HO.HMCC 08:54
PROVIDERS: PCP Internal Medicine; Visit Provider Internal Medicine
DX: I10 Essential (primary) hypertension (principal); R73.9 Hyperglycemia, unspecified; J45.909 Unspecified asthma, uncomplicated; E78.5 Hyperlipidemia, unspecified

== ENCOUNTER 2025-05-27 08:54 | Outpatient (REF) | payer MEDICARE, MEDICAID, OTHER, SELFPAY ==
--- NOTE | ~2025-05-27 | XR_ITS ---
EXAMINATION: XR CHEST 2 VIEWS HISTORY: R05.9 - Cough, unspecified COMPARISON: Comparison is made with the prior examination dated 04/28/2023. FINDINGS: PA and lateral views of the chest are submitted. There is linear subsegmental atelectasis versus scarring in the right midlung zone. The lungs are otherwise clear. There is no pleural effusion, pneumothorax, or pulmonary vascular congestion. The heart is normal in size. There is degenerative disc disease of the spine. XR/XR chest 2V IMPRESSION: Linear subsegmental atelectasis versus scarring in the right midlung zone. Electronically signed by: Cristian Hastings MD 05/27/2025 09:44 AM EST
== END 2025-05-27 08:55 | disposition home or self-care (01) ==
LOC: HO.HMGCX 08:54
PROVIDERS: PCP Internal Medicine; Visit Provider Internal Medicine
DX: I10 Essential (primary) hypertension (principal); R73.9 Hyperglycemia, unspecified; R78.5 Finding of other psychotropic drug in blood; J45.909 Unspecified asthma, uncomplicated
CPT/HCPCS: 71046; 99212

== ENCOUNTER → 2025-05-27 09:26 | Outpatient (BNV) | payer MEDICARE, MEDICAID, SELFPAY | PROVIDERS: PCP Internal Medicine; Visit Provider Radiology Diagnostic Radiology | DX: R05.9 Cough, unspecified (principal) | CPT/HCPCS: 71046 ==